=== PATIENT | female | born 1990 | race Two or more races ===

== ENCOUNTER 2022-06-23 13:49 | Outpatient (REF) | payer OTHER, SELFPAY ==
[2022-06-23 15:33] LABS: MANUAL DIFF FLAG NO
[2022-06-23 17:50] LABS: Appearance Urine Clear; Color Urine Yellow; Glucose Urine UA Negative (Negative); Leukocyte Esterase Urine Negative (Negative); Nitrite Urine Negative (Negative); Urine Blood Negative (Negative); Urine Ketones Negative (Negative); Urine Protein Negative (Neg-Trace)
[2022-06-23 17:54] LABS: Basophils Percent Auto 0.5 % (0-2); Eosinophils Absolute Auto 0.3 X10*3/uL (0.0-0.4); Eosinophils Percent Auto 4.2 % (0-4); Hematocrit 37.9 % (37.0-47.0); Hemoglobin 12.5 g/dl (12.0-16.0); Imm Gran Abs Auto 0.01 X10*3/uL (0.00-0.03); Imm Gran Pct Auto 0.2 % (0.0-0.4); Lymphocytes Absolute Auto 1.9 X10*3/uL (1.2-4.9); Lymphocytes Percent Auto 29.1 % (20-40); Mean Corpuscular Hemoglobin 27.7 pg (27.0-33.0); Mean Platelet Volume 11.9 fL (9.4-12.3); Monocytes Absolute Auto 0.5 X10*3/uL (0.1-1.2); Monocytes Percent Auto 7.2 % (2-11); Neutrophils Absolute Auto 3.9 x10*3/uL (2.0-8.3); Neutrophils Percent Auto 58.8 % (45-73); Platelet Count 198 X10*3/uL (160-400); Red Blood Count 4.51 X10*6/uL (4.20-5.50); Red Cell Distribution Width 11.9 % (11.0-16.0); White Blood Count 6.6 X10*3/uL (4.8-10.8)
[2022-06-23 17:56] LABS: Bacteria Urine None Seen (None Seen); Hyaline Casts Urine 0-2 /LPF (0-2); RBC Urine 0-2 /HPF (0-2); Squamous Epithelial Cell Urine 0-2 /HPF (0-2); WBC Urine 0-5 /HPF (0-5)
[2022-06-23 18:26] LABS: Creatinine Urine 72.16 mg/dL; Total Protein Urine Random < 7 mg/dL (<12)
[2022-06-23 18:43] LABS: Alanine Aminotransferase 18 U/L (0-31); Albumin Level 4.4 g/dL (3.5-5.0); Alkaline Phosphatase 79 U/L (39-117); Anion Gap 13 (12-20); Aspartate Amino Transferase 23 U/L (5-31); Bilirubin Total 0.5 mg/dL (0.0-1.0); Blood Urea Nitrogen 11 mg/dL (9-16); Calcium 9.1 mg/dL (8.4-10.2); Carbon Dioxide 24 mmol/L (22-29); Chloride 108 mmol/L (96-108); Estimated Glomerular Filt Rate > 60; Glucose Random 78 mg/dL (60-115); Potassium 3.9 mmol/L (3.3-5.1); Rheumatoid Factor < 13.0 IU/mL (<15.0); Sodium 141 mmol/L (135-145); TSH reflex Free T4 0.61 uIU/mL (0.32-4.0); Total Protein 7.1 g/dL (6.5-8.0)
[2022-06-23 18:56] LABS: Erythrocyte Sedimentation Rate 9 MM/HR (0-20)
[2022-06-24 07:23] LABS: HBS Num1 46.58 mIU/mL (0-7.99); HBsAGNum1 0.39 S/CO (0.00-0.99); Hepatitis A Antibody IgM 0.12 Index (0-0.79); Hepatitis B Core Antibody Nonreactive (Nonreactive); Hepatitis B Surface Antigen Negative (Negative); ~HepC Num1 0.11 S/CO (0.00-0.79); ~Hepatitis A Antibody IgM Nonreactive (Nonreactive); ~Hepatitis B Surface Antibody REACTIVE (Nonreactive); ~Hepatitis C Antibody Nonreactive (Nonreactive)
[2022-06-28 00:48] LABS: Complement C3 130 mg/dL (83-193)
[2022-06-28 11:54] LABS: Thyroglobulin Antibodies <1 IU/mL (< or = 1); Thyroid Peroxidase Antibodies <1 IU/mL (<9)
[2022-06-28 16:23] LABS: Cyclic Citrullinated Peptide <16 UNITS
[2022-06-28 21:44] LABS: PTT (LAC) Screen 32 sec (<=40)
[2022-06-29 09:19] LABS: Anti DNA DS Antibody 1 IU/mL; Antibody to SS-A Antigen <1.0 NEG AI (<1.0 NEG); Antibody to SS-B Antigen <1.0 NEG AI (<1.0 NEG); SM/Ribonucleoprotein Ab <1.0 NEG AI (<1.0 NEG); Smith Protein <1.0 NEG AI (<1.0 NEG)
[2022-06-29 15:38] LABS: DNAds, Crithidia Antibody Negative (Negative)
[2022-06-30 12:47] LABS: Beta-2 Glycoprotein IgA <2.0 U/mL (<20.0); Beta-2 Glycoprotein IgG <2.0 U/mL (<20.0); Beta-2 Glycoprotein IgM <2.0 U/mL (<20.0)
[2022-07-01 09:54] LABS: Cardiolipin IgG Ab <2.0 GPL-U/mL; Cardiolipin IgM Ab <2.0 MPL-U/mL
== END 2022-06-23 13:50 | disposition home or self-care (01) ==
LOC: HO.LAB 13:49
PROVIDERS: PCP Physician Assistant Medical; Visit Provider Student in an Organized Health Care Education/Training Program
DX: M70.62 Trochanteric bursitis, left hip (principal); M25.551 Pain in right hip; M25.532 Pain in left wrist; M25.531 Pain in right wrist; R76.8 Other specified abnormal immunological findings in serum; R53.83 Other fatigue; G43.909 Migraine, unspecified, not intractable, without status migrainosus; H66.90 Otitis media, unspecified, unspecified ear; Z79.899 Other long term (current) drug therapy; Z11.59 Encounter for screening for other viral diseases
CPT/HCPCS: 36415; 80053; 81001; 84156; 84443; 85025; 85597; 85613; 85652; 85730; 86140; 86146; 86147; 86160; 86200; 86225; 86235; 86255; 86376; 86431; 86704; 86706; 86709; 86800; 86803; 87340

== ENCOUNTER → 2022-07-28 15:15 | Outpatient (BNVA) | payer OTHER, SELFPAY | PROVIDERS: PCP Physician Assistant Medical; Visit Provider Student in an Organized Health Care Education/Training Program | DX: Z13.89 Encounter for screening for other disorder (principal) ==

== ENCOUNTER → 2022-09-05 14:50 | Outpatient (BNVA) | payer OTHER, SELFPAY | PROVIDERS: PCP Physician Assistant Medical; Visit Provider Nurse Practitioner Family | DX: Z13.89 Encounter for screening for other disorder (principal) ==

== ENCOUNTER 2022-11-07 17:14 | Outpatient (REF) | payer OTHER, SELFPAY ==
--- NOTE | ~2022-11-07 | MR_ITS ---
EXAMINATION: MR BRAIN WITHOUT AND WITH CONTRAST CLINICAL INFORMATION: Migraine. Left ear pain. COMPARISON: None available. TECHNIQUE: Multiplanar, multisequence MRI of the brain was obtained using a skull base protocol without and following the administration of 6.5 mL of Gadavist intravenous contrast. FINDINGS: No focal restricted diffusion is demonstrated to suggest acute or subacute cerebral ischemia. No evidence of acute or chronic hemorrhagic products on heme-sensitive imaging. Normal parenchymal signal characteristics. The ventricles are normal in morphology and size. No abnormal mass effect. No midline shift. Normal appearance of the pituitary gland. Normal positioning of the cerebellar tonsils. No mass of the cerebellopontine angles. Normal appearance of the cranial nerve V, VII, and VIII nerve roots. No edema or vascular loops near the nerve root entry sites. Normal appearance of the internal auditory canals without enhancing mass lesions. No abnormal enhancement along the course of the facial nerves bilaterally. Normal appearance of the labyrinthine structures without loss of T2 signal or abnormal enhancement. Normal arterial and venous vascular flow voids are present. No abnormal intracranial contrast enhancement. Normal, homogeneous marrow signal. No signal abnormalities within the paranasal sinuses or mastoids. MR/MR head/brain wo/w con IMPRESSION: 1. No acute intracranial abnormalities. No abnormal intracranial enhancement. 2. No MRI abnormalities to explain the patient's symptoms.
== END 2022-11-07 17:15 | disposition home or self-care (01) ==
LOC: HO.MRI 17:14
PROVIDERS: PCP Internal Medicine; Visit Provider Nurse Practitioner Family
DX: G43.009 Migraine without aura, not intractable, without status migrainosus (principal); H92.02 Otalgia, left ear; H93.12 Tinnitus, left ear; R76.8 Other specified abnormal immunological findings in serum
CPT/HCPCS: 70553; A9585

== ENCOUNTER 2025-02-26 10:09 | Outpatient (AMB) | payer OTHER, SELFPAY | END 2025-02-26 10:21 | disposition home or self-care (01) | LOC: HO.HMGAL 10:09 | PROVIDERS: PCP Internal Medicine; Visit Provider Registered Nurse Emergency | DX: J30.89 Other allergic rhinitis (principal) | CPT/HCPCS: 95117; 95165 ==

== ENCOUNTER 2025-03-05 10:29 | Outpatient (AMB) | payer OTHER, SELFPAY | END 2025-03-05 10:45 | disposition home or self-care (01) | LOC: HO.HMGAL 10:29 | PROVIDERS: PCP Internal Medicine; Visit Provider Registered Nurse Emergency | DX: J30.89 Other allergic rhinitis (principal) | CPT/HCPCS: 95117; 95165 ==

== ENCOUNTER 2025-03-10 09:25 | Outpatient (AMB) | payer OTHER, SELFPAY | END 2025-03-10 09:29 | disposition home or self-care (01) | LOC: HO.HMGAL 09:25 | PROVIDERS: PCP Internal Medicine; Visit Provider Registered Nurse Emergency | DX: J30.89 Other allergic rhinitis (principal) | CPT/HCPCS: 95117; 95165 ==

== ENCOUNTER 2025-05-12 10:52 | Outpatient (AMB) | payer OTHER, SELFPAY ==
--- OUTSIDE RECORDS SUMMARY | 2025-05-12 22:29 | XMS_ITS | Data Portability ---
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 Patient consented to telephone visit Patient was located in the [facility]. Provider was located in the office. No other persons participated in the telemedicine visit except for the patient unless otherwise indicated here. Total time of visit was 20 minutes. Not available 03/13/2023 16:40:55 Plan of Treatment Reminders Order Date Submit Date Provider Last Modified By Organization Details Last Modified Time Details Appointments None record ed. Lab amino acid profil e, serum 2024 025 ALFRED [facility] (Centralized Electronic Ordering - All Locations), Patient Can Go To The Location Of Their Choice, [address] 5 16:06:15 vitami n C, serum 2024 025 ALFRED [facility] (Centralized Electronic Ordering - All Locations), Patient Can Go To The Location Of Their Choice, [address] 5 16:06:18 fatty acids, free, QN, serum or plasma 2024 025 ALFRED [facility] (Centralized Electronic Ordering - All Locations), Patient Can Go To The Location Of Their Choice, 16:06:20 magnes ium, serum or plasma 2024 ALFRED [facility] (Centralized Electronic Ordering - All Locations), Patient Can Go To The Location Of Their Choice, 16:06:18 Hepati tis C IgG Ab, qual, serum 2024 ALFRED [facility] (Centralized Electronic Ordering - All Locations), Patient Can Go To The Location Of Their Choice, 16:06:17 vitami n B3 (niaci n+meta bolite s), serum 2024 ALFRED [facility] (Centralized Electronic Ordering - All Locations), Patient Can Go To The Location Of Their Choice, 16:06:16 amylas e + lipase , serum 2024 ALFRED [facility] (Centralized Electronic Ordering - All Locations), Patient Can Go To The Location Of Their Choice, 08:08:54 CMP, serum or plasma 2024 ALFRED [facility] (Centralized Electronic Ordering - All Locations), Patient Can Go To The Location Of Their Choice, 08:08:54 C reacti ve protei n, QN, serum or plasma 2024 025 ALFRED [facility] (Centralized Electronic Ordering - All Locations), Patient Can Go To The Location Of Their Choice, 08:08:55 CBC w/ auto diff 2024 025 ALFRED [facility] (Centralized Electronic Ordering - All Locations), Patient Can Go To The Location Of Their Choice, 08:08:53 ESR (eryth rocyte sedime ntatio n rate), blood 2023 024 [facility], [address], [place], [address], 4 22:06:07 rf (rheum atoid factor ), serum 2023 024 AL[facility], [address], [place], [address], 4 22:06:06 RAMSEY (antin uclear antibo dies) screen , ifa, serum 2023 024 ALFRED [facility], [address], [place], [address], 4 22:06:05 parvov irus B19 igg+ig m Ab, serum 2023 024 ALFR[facility], [address], [place], [address], 4 22:06:05 borrel ia burgdo rferi IgG + IgM + total panel, IA, serum 2023 024 AL[facility], [address], [place], [address], 4 22:06:07 unlist ed lab - CRP+hl a-B27 2023 024 AL[facility], [address], [place], [address], 4 22:06:04 Referral allerg ist referr al - pt allerg ist recent ly retire d 2024 025 [facility] Foster Lomas MD, [address] [place] [address], [facility], [place], [address], 5 11:16:[address] referr al 2024 025 [facility], [address] [place] [address], [place], [address], 5 11:43:45 psychi atrist referr al 2022 023 [email or web address] Not available 4 15:46:11 Procedures None record ed. Surgeries None record ed. Imaging electr omyogr am + nerve conduc tion study 2023 024 [facility] ([facility] [address], [address], 5 11:42:48 Medication Orders buprop ion HCl XL 300 mg 24 hr tablet , extend ed releas e 2022 023 [id number], [address] [facility], [place], [address], 4 13:39:00 Patient TargetsNo targets recorded. 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 Referring Physician: Shweta Anderson [facility], Encounter Date: 01/30/2025 Web Developer Referral for Mucous membrane dryness Referring Physician: Shweta Anderson [facility], Encounter Date: 01/30/2025 Results Created Date Observation Date Name Description Value Unit Range Abnormal Flag Note LastModifiedBy Organization Detail LastModifiedTime 05/02/2005/03/2024 CRP+H LA-B2 7 C-reactive protein, quant 2 mg/L 0-10 normal Not Available [facility] ([facility]) [address] [facility], [place], [address], 05/08/2024 22:06:04 05/02/20 24 05/08/2024 CRP+H LA-B2 7 hla-B27 Negati ve HLA-B *27 Negat dale B27 allel e inter preta tion for all loci based on IMGT/ HLA datab ase versi on 3.51. 0 This test was devel oped and its perfo rmanc e rai cteri stics deter mined by [employer] . It has not been clear ed or appro darius by the Food and Drug Admin istra tion. [facility] CLIA ID Matthew ashraf [id number] This test was perfo rmed using Polym erase Chain React ion (PCR) and Seque nce Speci fic Oligo nucle otide Probe s (SSOP ) techn ique. Seque nce Based Typin g (SBT) may be used as a suppl ement al metho d when neces tiffanie. If you have quest ions, pleas e call HLA custo frank servi ce at [phone] or email at [facility] [email or web address]. Not Available [facility] ([facility]) [address] [facility], [place], [address], 05/08/2024 22:06:04 05/02/20 24 05/03/2024 PARVO VIRUS B19, HUMAN , IGG/I GM parvovirus B19, IgG 6.0 index 0.0-0. 8 above high normal Negat dale <0.9 Equiv ocal 0.9 - 1.1 Posit dale >1.1 Not Available [facility] ([facility]) [address] [place], [address], 05/08/2024 22:06:05 05/02/20 24 05/03/2024 PARVO VIRUS B19, HUMAN , IGG/I GM parvovirus B19, IgM 0.2 index 0.0-0. 8 Negat dale <0.9 Equiv ocal 0.9 - 1.1 Posit dale >1.1 Not Available [facility] ([facility]) [address] [facility], [place], [address], 05/08/2024 22:06:05 05/02/20 24 05/08/2024 ANTI- NUCLE AR AB BY IFA (RDL) anti-nuclear Ab by ifa (rdl) Positi ve negati ve abnormal Not Available [facility] [address] [place], [address], 05/08/2024 22:06:05 05/02/20 24 05/08/2024 ANTI- NUCLE AR AB BY IFA (RDL) homogeneous pattern 1:80 <1:40 above high normal Not Available [facility] [address] [place], [address], 05/08/2024 22:06:05 05/02/20 24 05/08/2024 ANTI- NUCLE AR AB BY IFA (RDL) nucleolar pattern WHEEL BORER Not Available [facility] [address] [place] [address], [address], 05/08/2024 22:06:05 05/02/20 24 05/08/2024 ANTI- NUCLE AR AB BY IFA (RDL) speckled pattern 1:80 <1:40 above high normal Not Available [facility] [address] [place], [address], 05/08/2024 22:06:05 05/02/20 24 05/08/2024 ANTI- NUCLE AR AB BY IFA (RDL) centromere pattern WHEEL BORER Not Available [facility] [address] [place], [address], 05/08/2024 22:06:05 05/02/20 24 05/08/2024 ANTI- NUCLE AR AB BY IFA (RDL) spindle apparatus pattern WHEEL BORER Not Available [facility] [address] [place] [address], [address], 05/08/2024 22:06:05 05/02/20 24 05/08/2024 ANTI- NUCLE AR AB BY IFA (RDL) nuclear membrane pattern WHEEL BORER Not Available [facility] [address] [place], [address], 05/08/2024 22:06:05 05/02/20 24 05/08/2024 ANTI- NUCLE AR AB BY IFA (RDL) midbody pattern WHEEL BORER Not Available [facility] [address] [place], [address], 05/08/2024 22:06:05 05/02/20 24 05/08/2024 ANTI- NUCLE AR AB BY IFA (RDL) nuclear dot pattern WHEEL BORER Not Available [facility] [address] [place], [address], 05/08/2024 22:06:05 05/02/20 24 05/08/2024 ANTI- NUCLE AR AB BY IFA (RDL) pcna pattern WHEEL BORER Not Available [facility] [address] [place], [address], 05/08/2024 22:06:05 05/02/20 24 05/08/2024 ANTI- NUCLE AR AB BY IFA (RDL) centriole pattern WHEEL BORER Not Available [facility] [address] [place] [address], [address], 05/08/2024 22:06:05 05/02/20 24 05/08/2024 ANTI- NUCLE AR AB BY IFA (RDL) note: Commen t RAMSEY perfo rmed by Indir ect Fluor escen t Antib colleen (IFA) Not Available [facility] [address] [place] [address], [address], 05/08/2024 22:06:05 05/02/20 24 05/03/2024 RHEUM ATOID FACTO R (RF) rheumatoid factor (rf) <10.0 IU/mL <14.0 Not Available [facility]) [address] [facility], [place], [address], 05/08/2024 22:06:06 05/02/20 24 05/04/2024 LYME DISEA SE SEROL OGY W/REF DEONNA lyme total antibody alejandra Negati ve negati ve Lyme antib odies not detec vipul. Refle x testi ng is not indic ated. No labor atory evide nce of infec tion with B. burgd orfer i (Lyme disea se). Negat dale resul ts may occur in patie nts recen tly infec vipul (less than or equal to 14 days) with B. burgd orfer i. If recen t infec tion is suspe cted, repea t testi ng on a new sampl e colle cted in 7 to 14 days is recom rachna d. Not Available [facility] ([facility]) [address] [facility], [place], [address], 05/08/2024 22:06:07 05/02/20 24 05/03/2024 SEDIM ENTAT ION RATE- WESTE RGREN sedimentatio n rate-westerg may 10 mm/HR 0-32 normal Not Available [facility] ([facility]) [address] [place], [address], 05/08/2024 22:06:07 01/16/20 25 01/16/2025 CBC WITH DIFFE RENTI AL/PL ATELE T WBC 5.4 x10e3 /uL 3.4-10 .8 normal Not Available [facility] ([facility]) [address] [facility], [place], [address], 01/16/2025 08:08:53 01/16/20 25 01/16/2025 CBC WITH DIFFE RENTI AL/PL ATELE T RBC 4.52 x10e6 /uL 3.77-5 .28 normal Not Available [facility] ([facility]) [address] [place], [address], 01/16/2025 08:08:53 01/16/20 25 01/16/2025 CBC WITH DIFFE RENTI AL/PL ATELE T hemoglobin 13.0 g/dL 11.1-1 5.9 normal Not Available [facility] ([facility]) [address] [place], [address], 01/16/2025 08:08:53 01/16/20 25 01/16/2025 CBC WITH DIFFE RENTI AL/PL ATELE T hematocrit 40.2 % 34.0-4 6.6 normal Not Available [facility] ([facility]) [address] [facility], [place], [address], 01/16/2025 08:08:53 01/16/20 25 01/16/2025 CBC WITH DIFFE RENTI AL/PL ATELE T MCV 89 fL 79-97 normal Not Available [facility] ([facility]) [address] [place], [address], 01/16/2025 08:08:53 01/16/20 25 01/16/2025 CBC WITH DIFFE RENTI AL/PL ATELE T MCH 28.8 pg 26.6-3 3.0 normal Not Available [facility] ([facility]) [address] [facility], [place], [address], 01/16/2025 08:08:53 01/16/20 25 01/16/2025 CBC WITH DIFFE RENTI AL/PL ATELE T MCHC 32.3 g/dL 31.5-3 5.7 normal Not Available [facility] ([facility]) [address] [place], [address], 01/16/2025 08:08:53 01/16/20 25 01/16/2025 CBC WITH DIFFE RENTI AL/PL ATELE T RDW 12.3 % 11.7-1 5.4 Not Available [facility] ([facility]) [address] [place], [address], 01/16/2025 08:08:53 01/16/20 25 01/16/2025 CBC WITH DIFFE RENTI AL/PL ATELE T platelets 210 x10e3 /uL 150-45 0 normal Not Available [facility] ([facility]) [address] [place], [address], 01/16/2025 08:08:53 01/16/20 25 01/16/2025 CBC WITH DIFFE RENTI AL/PL ATELE T neutrophils 49 % not estab. normal Not Available [facility] ([facility]) [address] [facility], [place], [address], 01/16/2025 08:08:53 01/16/20 25 01/16/2025 CBC WITH DIFFE RENTI AL/PL ATELE T lymphs 37 % not estab. normal Not Available [facility] ([facility]) [address] [facility], [place], [address], 01/16/2025 08:08:53 01/16/20 25 01/16/2025 CBC WITH DIFFE RENTI AL/PL ATELE T monocytes 7 % not estab. normal Not Available [facility] ([facility]) [address] [facility], [place], [address], 01/16/2025 08:08:53 01/16/20 25 01/16/2025 CBC WITH DIFFE RENTI AL/PL ATELE T eos 6 % not estab. normal Not Available [facility] ([facility]) [address] [facility], [place], [address], 01/16/2025 08:08:53 01/16/20 25 01/16/2025 CBC WITH DIFFE RENTI AL/PL ATELE T basos 1 % not estab. normal Not Available [facility] ([facility]) [address] [facility], [place], [address], 01/16/2025 08:08:53 01/16/20 25 01/16/2025 CBC WITH DIFFE RENTI AL/PL ATELE T immature cells WHEEL BORER Not Available [facility] ([facility]) [address] [place], [address], 01/16/2025 08:08:53 01/16/20 25 01/16/2025 CBC WITH DIFFE RENTI AL/PL ATELE T neutrophils (absolute) 2.6 x10e3 /uL 1.4-7. 0 normal Not Available [facility] ([facility]) [address] [facility], [place], [address], 01/16/2025 08:08:53 01/16/20 25 01/16/2025 CBC WITH DIFFE RENTI AL/PL ATELE T lymphs (absolute) 2.0 x10e3 /uL 0.7-3. 1 normal Not Available [facility] ([facility]) [address] [facility], [place], [address], 01/16/2025 08:08:53 01/16/20 25 01/16/2025 CBC WITH DIFFE RENTI AL/PL ATELE T monocytes(ab solute) 0.4 x10e3 /uL 0.1-0. 9 normal Not Available [facility] ([facility]) [address] [facility], [place], [address], 01/16/2025 08:08:53 01/16/20 25 01/16/2025 CBC WITH DIFFE RENTI AL/PL ATELE T eos (absolute) 0.3 x10e3 /uL 0.0-0. 4 normal Not Available [facility] ([facility]) [address] [facility], [place], [address], 01/16/2025 08:08:53 01/16/20 25 01/16/2025 CBC WITH DIFFE RENTI AL/PL ATELE T baso (absolute) 0.0 x10e3 /uL 0.0-0. 2 normal Not Available [facility] ([facility]) [address] [place], [address], 01/16/2025 08:08:53 01/16/20 25 01/16/2025 CBC WITH DIFFE RENTI AL/PL ATELE T immature granulocytes 0 % not estab. Not Available [facility] ([facility]) [address] [facility], [place], [address], 01/16/2025 08:08:53 01/16/20 25 01/16/2025 CBC WITH DIFFE RENTI AL/PL ATELE T immature grans (abs) 0.0 x10e3 /uL 0.0-0. 1 Not Available [facility] ([facility]) [address] [facility], [place], [address], 01/16/2025 08:08:53 01/16/20 25 01/16/2025 CBC WITH DIFFE RENTI AL/PL ATELE T NRBC WHEEL BORER Not Available [facility] ([facility]) [address] [facility], [place], [address], 01/16/2025 08:08:53 01/16/20 25 01/16/2025 CBC WITH DIFFE RENTI AL/PL ATELE T hematology comments: WHEEL BORER Not Available [facility] ([facility]) [address] [facility], [place], [address], 01/16/2025 08:08:53 01/16/20 25 01/16/2025 COMP. METAB OLIC PANEL (14) glucose 89 mg/dL 70-99 normal Not Available [facility] ([facility]) [address] [facility], [place], [address], 01/16/2025 08:08:54 01/16/20 25 01/16/2025 COMP. METAB OLIC PANEL (14) BUN 17 mg/dL 6-20 normal Not Available [facility] ([facility]) [address] [facility], [place], [address], 01/16/2025 08:08:54 01/16/20 25 01/16/2025 COMP. METAB OLIC PANEL (14) creatinine 0.71 mg/dL 0.57-1 .00 normal Not Available [facility] ([facility]) [address] [place], [address], 01/16/2025 08:08:54 01/16/20 25 01/16/2025 COMP. METAB OLIC PANEL (14) eGFR 115 mL/mi n/1.7 3 >59 normal Not Available [facility] ([facility]) [address] [place], [address], 01/16/2025 08:08:54 01/16/20 25 01/16/2025 COMP. METAB OLIC PANEL (14) BUN/creatini ne ratio 24 9-23 above high normal Not Available [facility] ([facility]) [address] [place], [address], 01/16/2025 08:08:54 01/16/20 25 01/16/2025 COMP. METAB OLIC PANEL (14) sodium 143 mmol/ L 134-14 4 normal Not Available [facility] ([facility]) [address] [place], [address], 01/16/2025 08:08:54 01/16/20 25 01/16/2025 COMP. METAB OLIC PANEL (14) potassium 4.0 mmol/ L 3.5-5. 2 normal Not Available [facility] ([facility]) [address] [place], [address], 01/16/2025 08:08:54 01/16/20 25 01/16/2025 COMP. METAB OLIC PANEL (14) chloride 107 mmol/ L 96-106 above high normal Not Available [facility] ([facility]) [address] [facility] [place], [address], 01/16/2025 08:08:54 01/16/20 25 01/16/2025 COMP. METAB OLIC PANEL (14) carbon dioxide, total 22 mmol/ L 20-29 normal Not Available [facility] ([facility]) [address] [facility] [place], [address], 01/16/2025 08:08:54 01/16/20 25 01/16/2025 COMP. METAB OLIC PANEL (14) calcium 9.0 mg/dL 8.7-10 .2 normal Not Available [facility] ([facility]) [address] [place], [address], 01/16/2025 08:08:54 01/16/20 25 01/16/2025 COMP. METAB OLIC PANEL (14) protein, total 6.8 g/dL 6.0-8. 5 normal Not Available [facility] ([facility]) [address] [place], [address], 01/16/2025 08:08:54 01/16/20 25 01/16/2025 COMP. METAB OLIC PANEL (14) albumin 4.1 g/dL 3.9-4. 9 normal Not Available [facility] ([facility]) [address] [facility] [place], [address], 01/16/2025 08:08:54 01/16/20 25 01/16/2025 COMP. METAB OLIC PANEL (14) globulin, total 2.7 g/dL 1.5-4. 5 Not Available [facility] ([facility]) [address] [facility] [place], [address], 01/16/2025 08:08:54 01/16/20 25 01/16/2025 COMP. METAB OLIC PANEL (14) bilirubin, total 0.3 mg/dL 0.0-1. 2 normal Not Available [facility] ([facility]) [address] [facility] [place], [address], 01/16/2025 08:08:54 01/16/20 25 01/16/2025 COMP. METAB OLIC PANEL (14) alkaline phosphatase 61 IU/L 44-121 normal Not Available [facility]) [address] [facility] [place], [address], 01/16/2025 08:08:54 01/16/20 25 01/16/2025 COMP. METAB OLIC PANEL (14) AST (SGOT) 18 IU/L 0-40 normal Not Available [facility] ([facility]) [address] [facility] [place], [address], 01/16/2025 08:08:54 01/16/20 25 01/16/2025 COMP. METAB OLIC PANEL (14) ALT (SGPT) 12 IU/L 0-32 normal Not Available [facility] ([facility]) [address] [place], [address], 01/16/2025 08:08:54 01/16/20 25 01/16/2025 BRIA+L IPASE amylase 48 U/L 31-110 normal Not Available [facility] ([facility]) [address] [place], [address], 01/16/2025 08:08:54 01/16/20 25 01/16/2025 BRIA+L IPASE lipase 31 U/L 14-72 normal Not Available [facility] ([facility]) [address] [place], [address], 01/16/2025 08:08:54 01/16/20 25 01/16/2025 C-RAFAEL CTIVE PROTE IN, QUANT C-reactive protein, quant <1 mg/L 0-10 Not Available [facility] ([facility]) [address] [place], [address], 01/16/2025 08:08:55 01/23/20 25 01/23/2025 H. PYLOR I STOOL AG, EIA H. pylori stool Ag, EIA Negati ve negati ve Not Available [facility] ([facility]) [address] [place], [address], 01/23/2025 18:06:01 02/08/20 25 02/07/2025 AMINO ACID PROFI LE, QN, PLASM A methodology Commen t Amino acid jadiel ntrat ions were obtai charles by LC-MS /MS corinne sis. Not Available [facility] ([facility]) [address] [place], [address], 02/19/2025 16:06:15 08/02/19/2025 AMINO ACID PROFI LE, QN, PLASM A taurine 76.2 umol/ L 29.2-1 32.3 Not Available [facility] ([facility]) [address] [facility], [place], [address], 02/19/2025 16:06:15 02/08/2002/19/2025 AMINO ACID PROFI LE, QN, PLASM A aspartate 3.0 umol/ L 0.0-7. 4 Not Available [facility] ([facility]) [address] [facility], [place], [address], 02/19/2025 16:06:15 02/08/2002/19/2025 AMINO ACID PROFI LE, QN, PLASM A hydroxyproli ne 15.1 umol/ L 4.7-35 .2 Not Available [facility] ([facility]) [address] [facility], [place], [address], 02/19/2025 16:06:15 02/08/2002/19/2025 AMINO ACID PROFI LE, QN, PLASM A threonine 174.2 umol/ L 67.8-2 11.6 Not Available [facility] ([facility]) [address] [place], [address], 02/19/2025 16:06:15 02/08/2002/19/2025 AMINO ACID PROFI LE, QN, PLASM A serine 79.9 umol/ L 48.7-1 45.2 Not Available [facility] ([facility]) [address] [place], [address], 02/19/2025 16:06:15 02/08/2002/19/2025 AMINO ACID PROFI LE, QN, PLASM A asparagine 55.8 umol/ L 29.5-8 4.5 Not Available [facility] ([facility]) [address] [place], [address], 02/19/2025 16:06:15 02/08/2002/19/2025 AMINO ACID PROFI LE, QN, PLASM A glutamate 51.1 umol/ L 18.1-1 55.9 Not Available [facility] ([facility]) [address] [facility], [place], [address], 02/19/2025 16:06:15 02/08/2002/19/2025 AMINO ACID PROFI LE, QN, PLASM A glutamine 583.3 umol/ L 372.8- 701.4 Not Available [facility] ([facility]) [address] [facility], [place], [address], 02/19/2025 16:06:15 02/08/2002/19/2025 AMINO ACID PROFI LE, QN, PLASM A sarcosine 0.8 umol/ L 0.0-4. 0 Not Available [facility] ([facility]) [address] [facility], [place], [address], 02/19/2025 16:06:15 02/08/2002/19/2025 AMINO ACID PROFI LE, QN, PLASM A alpha-aminoa dipate 0.9 umol/ L 0.0-1. 9 Not Available [facility] ([facility]) [address] [facility], [place], [address], 02/19/2025 16:06:15 02/08/2002/19/2025 AMINO ACID PROFI LE, QN, PLASM A proline 215.0 umol/ L 84.8-3 52.5 Not Available [facility] ([facility]) [address] [place], [address], 02/19/2025 16:06:15 02/08/2002/19/2025 AMINO ACID PROFI LE, QN, PLASM A glycine 226.5 umol/ L 144.0- 411.0 Not Available [facility] ([facility]) [address] [place], [address], 02/19/2025 16:06:15 02/08/20 25 02/19/2025 AMINO ACID PROFI LE, QN, PLASM A alanine 338.4 umol/ L 209.2- 515.5 Not Available [facility] ([facility]) [address] [facility], [place], [address], 02/19/2025 16:06:15 02/08/20 25 02/19/2025 AMINO ACID PROFI LE, QN, PLASM A citrulline 159.6 umol/ L 15.6-4 6.9 above high normal Not Available [facility] ([facility]) [address] [facility], [place], [address], 02/19/2025 16:06:15 02/08/20 25 02/19/2025 AMINO ACID PROFI LE, QN, PLASM A alpha-aminob utyrate 24.4 umol/ L 5.4-34 .5 Not Available [facility] ([facility]) [address] [facility], [place], [address], 02/19/2025 16:06:15 02/08/2002/19/2025 AMINO ACID PROFI LE, QN, PLASM A valine 238.7 umol/ L 133.0- 317.1 Not Available [facility] ([facility]) [address] [facility], [place], [address], 02/19/2025 16:06:15 02/08/2002/19/2025 AMINO ACID PROFI LE, QN, PLASM A cystine 33.6 umol/ L 15.8-4 7.3 Not Available [facility] ([facility]) [address] [place], [address], 02/19/2025 16:06:15 02/08/20 25 02/19/2025 AMINO ACID PROFI LE, QN, PLASM A methionine 24.5 umol/ L 14.7-3 5.2 Not Available [facility] ([facility]) [address] [facility], [place], [address], 02/19/2025 16:06:15 02/08/2002/19/2025 AMINO ACID PROFI LE, QN, PLASM A homocitrulli ne <0.5 umol/ L 0.0-1. 7 Not Available [facility] ([facility]) [address], [place], [address], 02/19/2025 16:06:15 02/08/2002/19/2025 AMINO ACID PROFI LE, QN, PLASM A cystathionin e <0.5 umol/ L 0.0-0. 7 Not Available [facility] ([facility]) [address], [place], [address], 02/19/2025 16:06:15 02/08/2002/19/2025 AMINO ACID PROFI LE, QN, PLASM A alloisoleuci ne 1.2 umol/ L 0.0-3. 2 Not Available [facility] ([facility]) [address], [place], [address], 02/19/2025 16:06:15 02/08/2002/19/2025 AMINO ACID PROFI LE, QN, PLASM A isoleucine 63.2 umol/ L 32.8-8 8.3 Not Available [facility] ([facility]) [address] [place], [address], 02/19/2025 16:06:15 02/08/2002/19/2025 AMINO ACID PROFI LE, QN, PLASM A leucine 119.6 umol/ L 66.7-1 65.7 Not Available [facility] ([facility]) [address], [place], [address], 02/19/2025 16:06:15 02/08/20 25 02/19/2025 AMINO ACID PROFI LE, QN, PLASM A tyrosine 77.0 umol/ L 27.8-8 3.3 Not Available [facility] ([facility]) [address], [place], [address], 02/19/2025 16:06:15 02/08/2002/19/2025 AMINO ACID PROFI LE, QN, PLASM A phenylalanin e 79.9 umol/ L 35.8-7 6.9 above high normal Not Available [facility] ([facility]) [address], [place], [address], 02/19/2025 16:06:15 02/08/2002/19/2025 AMINO ACID PROFI LE, QN, PLASM A argininosucc inate 0.1 umol/ L 0.0-3. 0 Not Available [facility] ([facility]) [address], [place], [address], 02/19/2025 16:06:15 02/08/2002/19/2025 AMINO ACID PROFI LE, QN, PLASM A beta-alanine 2.7 umol/ L 1.1-9. 0 Not Available [facility] ([facility]) [address], [place], [address], 02/19/2025 16:06:15 02/08/2002/19/2025 AMINO ACID PROFI LE, QN, PLASM A beta-aminois obutyrate 0.8 umol/ L 0.0-4. 3 Not Available [facility] ([facility]) [address] [place], [address], 02/19/2025 16:06:15 02/08/2002/19/2025 AMINO ACID PROFI LE, QN, PLASM A homocystine <0.3 umol/ L 0.0-0. 2 Not Available [facility] ([facility]) [address], [place], [address], 02/19/2025 16:06:15 02/08/2002/19/2025 AMINO ACID PROFI LE, QN, PLASM A gamma-aminob utyrate <0.5 umol/ L 0.0-0. 6 Not Available [facility] ([facility]) [address] [place], [address], 02/19/2025 16:06:15 02/08/2002/19/2025 AMINO ACID PROFI LE, QN, PLASM A tryptophan 54.5 umol/ L 23.5-9 3.0 Not Available [facility] ([facility]) [address], [place], [address], 02/19/2025 16:06:15 02/08/2002/19/2025 AMINO ACID PROFI LE, QN, PLASM A hydroxylysin e 0.2 umol/ L 0.1-0. 8 Not Available [facility] ([facility]) [address] [place], [address], 02/19/2025 16:06:15 02/08/2002/19/2025 AMINO ACID PROFI LE, QN, PLASM A ornithine 76.0 umol/ L 30.1-1 01.3 Not Available [facility] ([facility]) [address] [place], [address], 02/19/2025 16:06:15 02/08/2002/19/2025 AMINO ACID PROFI LE, QN, PLASM A lysine 156.3 umol/ L 94.0-2 78.0 Not Available [facility] ([facility]) [address] [place], [address], 02/19/2025 16:06:15 02/08/2002/19/2025 AMINO ACID PROFI LE, QN, PLASM A histidine 35.2 umol/ L 47.2-9 8.5 below low normal Not Available [facility] ([facility]) [address] [place], [address], 02/19/2025 16:06:15 02/08/20 25 02/19/2025 AMINO ACID PROFLENCHO GRECO, PLASM A arginine 114.3 umol/ L 36.3-1 19.2 Not Available [facility] ([facility]) [address], [place], [address], 02/19/2025 16:06:15 02/08/20 25 02/19/2025 AMINO ACID PROFI LENCHO BRANNON, PLASM A interpretati on Commen t: Plasm a amino acid corinne sis revea led a mildl y eleva vipul jadiel ntrat ion of citru lline . In the absen ce of clini anil infor matio n, the signi fican ce of this findi ng is uncer tain and may be a dieta ry artif act. Howev er, eleva vipul citru lline is assoc iated with brice al inbor n error s of metab olism (citr ullin emia type 1, pyruv ate carbo xylas e defic iency and citri n defic iency ) and it can also be secon estefany to reduc ed kidne y funct ion. These resul ts shoul d be corre lated with the clini anil and nutri michael l statu s of the patie nt at the time so sampl e colle ction . Not Available [facility] ([facility]) [address], [place], [address], 02/19/2025 16:06:15 02/08/20 25 02/19/2025 AMINO ACID PROFLENCHO GRECO, PLASM A director review Commen t Techn ical [place] nent corinne sis perfo rmed at [facility] Star lee al [place] nent inter preta tion perfo rmed by: Dionne De , PhD, [facility] Dire tor, [employer] [facility] ESTGD [address] [facility] [address] To discu ss these resul ts or other testi ng for inbor n error s of metab olism , pleas e conta ct our [employer] ic[facility] s at [phone] GENE( [phone]) , [facility] [facility] [employer], [facility], [place]. Not Available [facility] ([facility]) [address], [place], [address], 02/19/2025 16:06:15 02/08/20 25 02/16/2025 VITAM IN B3 (NIAC IN+ME TABOL ITE) nicotinamide 12.5 NG/mL 5.2-72 .1 Not Available [facility] ([facility]) [address], [place], [address], 02/19/2025 16:06:16 02/08/20 25 02/18/2025 VITAM IN B3 (NIAC IN+ME TABOL ITE) nicotinic acid <5.0 NG/mL 0.0-5. 0 Not Available [facility] ([facility]) [address], [place], [address], 02/19/2025 16:06:16 02/08/20 25 02/08/2025 HCV ANTIB COLLEEN RFX TO QUANT PCR HCV Ab Non Reacti ve non reacti ve Not Available [facility] ([facility]) [address], [place], [address], 02/19/2025 16:06:17 02/08/20 25 02/08/2025 HCV ANTIB COLLEEN RFX TO QUANT PCR interpretati on: Commen t Not infec vipul with HCV unles s early or acute infec tion is suspe cted (whic h may be delay ed in an immun ocomp romis ed indiv idual ), or other evide nce exist s to indic ate HCV infec tion. Not Available [facility] ([facility]) [address], [place], [address], 02/19/2025 16:06:17 02/08/20 25 02/12/2025 VITAM IN C vitamin C 1.3 mg/dL 0.4-2. 0 Vitam in C defic iency is gener ally defin ed as plasm a jadiel ntrat ions less than 0.2 mg/dL and level s betwe en 0.2 and 0.4 mg/dL are consi dered low. Not Available [facility] ([facility]) [address], [place], [address], 02/19/2025 16:06:17 02/08/2002/08/2025 MAGNE SIUM magnesium 2.0 mg/dL 1.6-2. 3 normal Not Available [facility] ([facility]) [address], [place], [address], 02/19/2025 16:06:18 02/08/2002/11/2025 FATTY ACIDS , FREE (NONE STER) fatty acids, free (nonester) 0.4 mEq/L 0.1-1. 1 Not Available [facility] ([facility]) [address], [place], [address], 02/19/2025 16:06:20 01/18/20 23 01/17/2023 US, head + neck, soft tissu e US Soft Tissue Head/N jimmie Reason : E04.9; concer n for nontox ic goiter . COMPAR MARY ALICE: None FINDIN GS: RIGHT THYROI D LOBE: 4.8 x 1.1 x 1.3 cm, volume 3.7 cc. Normal homoge neous echote xture. Normal parenc hymal vascul arity. No right nodule s. LEFT THYROI D LOBE: 4.6 x 1.0 x 1.6 cm, volume 3.8 cc. Normal homoge neous echote xture. Normal parenc hymal vascul arity. No left nodule s. ISTHMU S: Thickn ess: 0.2 cm. IMPRES RICO: Normal ultras ound of the thyroi d gland. I have person ally review ed the images and I agree with this report . WSN: [id number] Orderi ng Physic dio: Aria nova WHEEL BORER, Mireille Antoine Dictat ed By: Yordy Fernandes MD Dictat ed Date/T senthil: 8:11 am Review ed By: Kimberli ziegler MD, Brayan Signed By: Brayan Lewis MD Signed Date/T senthil: 8:16 am Transc ribed By: QUINTON Transc ribed Date/T senthil: 8:00 am Patien t Class: Outpat ient [facility] (Outpt Imaging) [address], [place], [address], 01/25/2023 11:19:30 03/06/20 25 02/15/2025 US, abdom en No observ ation record ed. [facility] [address] [place], [address], 03/06/2025 14:21:22 03/06/20 25 02/15/2025 US, abdom en No observ ation record ed. [facility] [address] [place], [address], 03/11/2025 15:36:02 Result Notes None recorded. Problems Name Problem SNOMED Code Status Onset Date Resolution Date Notes Provider Name and Address Organization Details Recorded Time Anxiety 19327592 Active Not Available [facility] 3 02:17:09 Fatigue 26900816 Completed 01/11/2018 Nelsy verma [facility] 8 11:25:18 Acute sinusiti s 74093991 Completed 01/06/2017 ANDREW Chew [facility] 7 09:50:38 Contact dermatit is 83941143 Completed 01/06/2017 ANDREW Chew [facility] 7 09:50:44 Varicell a 44857316 Completed 199301/07/2014 DATE: 1993; ; RECORDED 04/12/20 12 4:09PM BY MOMO CHEW ON/ADDEN DOMINICK Negrete, [facility] [address], [place], [address] , [facility] 6 14:34:17 Varicell a [id number] Completed 199301/30/2014 DATE: 1993; ; RECORDED 04/12/20 12 4:09PM BY MOMO CHEW ON/ADDEN DUM Alcides Negrete, [facility] [address], [place], [address] , [facility] 6 14:34:17 Varicell a [id number] Completed 199301/31/2014 DATE: 1993; ; RECORDED 04/12/20 12 4:09PM BY MOMO CHEW ON/ADDBENNETT DUM Alcides Negrete, [facility] [address], [place], [address] , [facility] 6 14:34:17 Administ ration of Haemdinahi osiris influenz ae type b vaccine Completed 201001/07/2014 RECORDED 09/29/19 11 11:26AM BY CELSO MONROE, HISTORIC AL SUMMARY Alcides Negrete [facility] [address], [place], [address] , [facility] 6 14:34:18 Active or passive immuniza tion Completed 201001/07/2014 RECORDED 09/29/19 11 11:30AM BY CELSO MONROE, HISTORIC AL SUMMARY Alcides Negrete, [facility] [address], [place], [address] , [facility] 6 14:34:18 Administ ration of poliomye litis vaccine Completed 201001/07/2014 RECORDED 09/29/19 11 11:24AM BY CELSO MONROE, SHERRONIC AL SUMMARY Alcides Negrete, [facility] [address], [place], [address] , [facility] 6 14:34:18 Infectiv e hepatiti s immuniza tion Completed 201001/07/2014 RECORDED 09/29/19 11 11:27AM BY CELSO MONROE, HISTORIC AL SUMMARY Alcides Negrete, [facility] [address], [place], [address] , [facility] 6 14:34:18 Administ ration of diphther ia, pertussi s, and tetanus vaccine Completed 201001/07/2014 RECORDED 09/29/19 11 11:23AM BY CELSO MONROE, SHERRONIC AL SUMMARY Alcides Negrete, [facility] [address], [place], [address] , [facility] 6 14:34:18 Administ ration of bacteria l and viral vaccine Completed 201001/07/2014 RECORDED 09/29/19 11 11:28AM BY CELSO MONROE, HISTORIC AL SUMMARY Alcides Negrete, [facility] [address], [place], [address] , [facility] 6 14:34:18 Administ ration of measles and mumps and rubella vaccine Completed 201001/07/2014 RECORDED 09/29/19 11 11:25AM BY CELSO MONROE, SHERRONIC AL SUMMARY Alcides Negrete, [facility] [address] [facility] [address], [place], [address] , [facility] 6 14:34:18 Varicell a vaccinat ion Completed 201001/07/2014 RECORDED 09/29/19 11 11:29AM BY CELSO MONROE, HISTORIC AL SUMMARY Alcides Negrete, [facility] [address], [place], [address] , [facility] 6 14:34:18 Administ ration of Haemophi osiris influenz ae type b vaccine Completed 201001/30/2014 RECORDED 09/29/19 11 11:26AM BY CELSO MONROE, HISTORIC AL SUMMARY Alfreditofreddie Negrete, [facility] [address] [facility] [address], [place], [address] , [facility] 6 14:34:18 Active or passive immuniza tion Completed 201001/30/2014 RECORDED 09/29/19 11 11:30AM BY CELSO MONROE, HISTORIC AL SUMMARY Alcides Negrete, [facility] [address] [facility] [address], [place], [address] , [facility] 6 14:34:18 Administ ration of poliomye litis vaccine Completed 201001/30/2014 RECORDED 09/29/19 11 11:24AM BY CELSO MONROE, HISTORIC AL SUMMARY Alcides Negrete, [facility] [address] [facility] [address], [place], [address] , [facility] 6 14:34:18 Infectiv e hepatiti s immuniza tion Completed 201001/30/2014 RECORDED 09/29/19 11 11:27AM BY CELSO MONROE, HISTORIC AL SUMMARY Alcides Negrete, [facility] [address] [facility] [address], [place], [address] , [facility] 6 14:34:18 Administ ration of diphther ia, pertussi s, and tetanus vaccine Completed 201001/30/2014 RECORDED 09/29/19 11 11:23AM BY CELSO MONROE, HISTORIC AL SUMMARY Alcides Negrete, [facility] [address] [facility] [address], [place], [address] , [facility] 6 14:34:18 Administ ration of bacteria l and viral vaccine Completed 201001/30/2014 RECORDED 09/29/19 11 11:28AM BY CELSO MONROE, HISTORIC AL SUMMARY Alcides Negrete, [facility] [address] [facility] [address], [place], [address] , [facility] 6 14:34:18 Administ ration of measles and mumps and rubella vaccine Completed 201001/30/2014 RECORDED 09/29/19 11 11:25AM BY CELSO MONROE, HISTORIC AL SUMMARY Alcides Negrete, [facility] [address] [facility] [address], [place], [address] , [facility] 6 14:34:18 Varicell a vaccinat ion Completed 201001/30/2014 RECORDED 09/29/19 11 11:29AM BY CELSO MONROE, HISTORIC AL SUMMARY Alcides Negrete, [facility] [address] [facility] [address], [place], [address] , [facility] 6 14:34:18 Administ ration of Haemophi osiris influenz ae type b vaccine Completed 201001/31/2014 RECORDED 09/29/19 11 11:26AM BY CELSO MONROE, HISTORIC AL SUMMARY Alcides Negrete [facility] [address] [facility] [address], [place], [address] , [facility] 6 14:34:18 Active or passive immuniza tion Completed 201001/31/2014 RECORDED 09/29/19 11 11:30AM BY CELSO MONROE, HISTORIC AL SUMMARY Alcides Negrete, [facility] [address] [facility] [address], [place], [address] , [facility] 6 14:34:18 Administ ration of poliomye litis vaccine Completed 201001/31/2014 RECORDED 09/29/19 11 11:24AM BY CELSO MONROE, HISTORIC AL SUMMARY Alcides Negrete, [facility] [address] [facility] [address], [place], [address] , [facility] 6 14:34:18 Infectiv e hepatiti s immuniza tion Completed 201001/31/2014 RECORDED 09/29/19 11 11:27AM BY CELSO MONROE, HISTORIC AL SUMMARY Alcides Negrete, [facility] [address] [facility] [address], [place], [address] , [facility] 6 14:34:18 Administ ration of diphther ia, pertussi s, and tetanus vaccine Completed 201001/31/2014 RECORDED 09/29/19 11 11:23AM BY CELSO MONROE, HISTORIC AL SUMMARY Alcides Negrete, [facility] [address] [facility] [address], [place], [address] , [facility] 6 14:34:18 Administ ration of bacteria l and viral vaccine Completed 201001/31/2014 RECORDED 09/29/19 11 11:28AM BY CELSO MONROE, HISTORIC AL SUMMARY Alcides Negrete, [facility] [address] [facility] [address], [place], [address] , [facility] 6 14:34:18 Administ ration of measles and mumps and rubella vaccine Completed 201001/31/2014 RECORDED 09/29/19 11 11:25AM BY CELSO MONROE, HISTORIC AL SUMMARY Alcides Negrete, [facility] [address] [facility] [address], [place], [address] , [facility] 6 14:34:18 Varicell a vaccinat ion Completed 201001/31/2014 RECORDED 09/29/19 11 11:29AM BY CELSO MONROE, HISTORIC AL SUMMARY Alcides Negrete, [facility] [address] [address], [place], [address] , [facility] 6 14:34:18 Acute sinusiti s [id number] Completed 201101/07/2014 IMPRESSI ON: 3 WEEKS OF COUGH, GREEN SPUTUM, NASAL PRESSURE AND HEADACHE S, TX FOR SINUSITI S; RECORDED 04/12/20 12 4:09PM BY MOMO CHEW ON/ADDEN DUM Mayra Childress MA null, [facility] 7 09:50:38 Influenz a vaccine needed [id number] 06 Completed 201101/07/2014 RECORDED 04/12/20 12 4:19PM BY MAYRA CHILDRESS, OFFICE VISIT Alcides Negrete, [facility] [address] [address], [place], [address] , [facility] 6 14:34:18 Well child [id number] Completed 201101/07/2014 IMPRESSI ON: FIRST PAP TODAY, TOLERATE D WELL; RECORDED 04/12/20 12 4:09PM BY MOMO CHEW ON/ADDEN DUM Alcides Negrete, [facility] [address] [address], [place], [address] , [facility] 6 14:34:18 Administ ration of tetanus vaccine Completed 201101/07/2014 RECORDED 04/12/20 12 4:09PM BY MOMO CHEW ON/HILDA Negrete, [facility] [address] [address], [place], [address] , [facility] 6 14:34:18 Acute sinusiti s [id number] Completed 201101/30/2014 IMPRESSI ON: 3 WEEKS OF COUGH, GREEN SPUTUM, NASAL PRESSURE AND HEADACHE S, TX FOR SINUSITI S; RECORDED 04/12/20 12 4:09PM BY MOMO CHEW ON/ADDEN DOMINICK Childress MA null, [facility] 7 09:50:38 Influenz a vaccine needed [id number] 06 Completed 201101/30/2014 RECORDED 04/12/20 12 4:19PM BY MAYRA CHILDRESS, OFFICE VISIT Alcides Negrete, [place] [address] [address] [address], [place], [address] , [facility] 6 14:34:18 Well child [id number] Completed 201101/30/2014 IMPRESSI ON: VAGINAL DISCHARG E, NO PAIN ON EXAM WAIT FOR CULTURES ; RECORDED 04/12/20 12 4:09PM BY MOMO CHEW ON/ADDEN DUM Alcides Negrete, [address] [address], [place], [address] , [facility] 6 14:34:18 Administ ration of tetanus vaccine Completed 201101/30/2014 RECORDED 04/12/20 12 4:09PM BY MOMO CHEW ON/ADDEN DUM Alcides Negrete, [address] [address], [place], [address] , [facility] 6 14:34:18 Acute sinusiti s 65146605 Completed 201101/31/2014 IMPRESSI ON: 3 WEEKS OF COUGH, GREEN SPUTUM, NASAL PRESSURE AND HEADACHE S, TX FOR SINUSITI S; RECORDED 04/12/20 12 4:09PM BY MOMO CHEW ON/HILDA Childress MA [facility] 7 09:50:38 Influenz a vaccine needed [id number] 06 Completed 201101/31/2014 RECORDED 04/12/20 12 4:19PM BY MAYRA CHILDRESS, OFFICE VISIT Alcides Negrete, [place] [address] [address], [place], [address] , [facility] 6 14:34:18 Well child [id number] Completed 201101/31/2014 IMPRESSI ON: VAGINAL DISCHARG E, NO PAIN ON EXAM WAIT FOR CULTURES ; RECORDED 04/12/20 12 4:09PM BY MOMO CHEW ON/ADDBENNETT Negrete, [facility] [address] [facility] [address], [place], [address] , [facility] 6 14:34:18 Administ ration of tetanus vaccine Completed 201101/31/2014 RECORDED 04/12/20 12 4:09PM BY MOMO CHEW ON/ADDEN DOMINICK Negrete, [facility] [address] [facility] [address], [place], [address] , [facility] 6 14:34:18 Clinical finding Completed 201301/07/2014 IMPRESSI ON: ABN PAP, KHANH TO CALL RECORD TESTER ND SET HER UP FOR EVAL AND SEND OPHTHALMIC ASST THE PAP RESULT; RECORDED 10/23/19 14 1:44PM BY ANGEL MARINO MA, MOMO ON/ADDEN DOMINICK Negrete, [facility] [address] [facility] [address], [place], [address] , [facility] 6 14:34:17 Acute pharyngi tis [id number] Completed 201301/06/2017 RECORDED 10/23/19 14 2:09PM BY ALCIDES NEGRETE PA-C, OFFICE VISIT Mayra Childress MA [facility] 7 09:50:41 Allergic rhinitis 03336306 Active 2013 RECORDED 10/23/19 14 2:17PM BY ALCIDES NEGRETE PA-C, OFFICE VISIT Not Available [facility] 3 02:17:09 Allergy to food [id number] Active 2013 IMPRESSI ON: CARRY EPIPEN, PT HAS DONE TRIANING ON EPIPEN USE FOR CAMP COUNSELO R TRAINING , FEELS COMFORTA BLE, AVOID THOSE FOODS; RECORDED 10/23/19 14 1:44PM BY ANGEL MARINO MA, OFFICE VISIT Not Available [facility] 3 02:17:09 Adult health examinat ion Completed 201301/07/2014 IMPRESSI ON: PT IS ACTIVE, EATING WELL; RECORDED 10/23/19 14 1:44PM BY ANGEL MARINO MA, MOMO ON/HILDA Negrete, [facility] [address] [address], [place], [address] , [facility] 6 14:34:18 Dysmenor billy [id number] Completed 201301/07/2014 IMPRESSI ON: NEG REGNANCY TEST TODAY, OK TO GET VARIVAX; RECORDED 10/23/19 14 1:44PM BY ANGEL MARINO MA, KIMBERLYATI ON/HILDA Negrete, [address] [address], [place], [address] , [facility] 6 14:34:17 Speciali zed medical examinat ion Completed 201301/07/2014 IMPRESSI ON: PAP TODAY, COULD HAVE GARDNERE LLA,; RECORDED 10/23/19 14 1:44PM BY ANGEL MARINO MA, ANNOTYESSICA ON/HILDA Negrete, [address] [address] [address], [place], [address] , [facility] 6 14:34:18 Malaise and fatigue [id number] Completed 201301/11/2018 IMPRESSI ON: DOING GREAT, WEANED OFF CELEXA, NO DRINKING , MOOD IS GREAT, EXCELLEN T CHOICES; RECORDED 10/23/19 14 1:44PM BY ANGEL MARINO MA, OFFICE VISIT Nelsy verma, [facility] 8 11:25:11 Patient status finding [id number] Completed 201301/06/2017 RECORDED 10/23/19 14 1:45PM BY ANGEL MARINO MA, OFFICE VISIT ANDREW Chew, [facility] 7 09:50:35 Screenin g for malignan t neoplasm of cervix Completed 201301/07/2014 RECORDED 10/23/19 14 1:44PM BY ANGEL MARINO MA, KIMBERLYATI ON/ADDBENNETT Negrete, [facility] [address] [address], [place], [phone] , [facility] 6 14:34:18 Chronic sinusiti s [id number] Completed 201301/11/2018 RECORDED 10/23/19 14 2:10PM BY ALCIDES NEGRETE PA-C, [facility] 8 11:25:14 Candidal vulvovag initis [id number] Completed 201301/07/2014 RECORDED 10/23/19 14 1:44PM BY ANGEL MARINO MA, MOMO ON/HILDA Negrete, [place] [id number] [address], [place], [phone] , [facility] 6 14:34:17 Clinical finding Completed 201301/30/2014 IMPRESSI ON: ABN PAP, KHANH TO CALL RECORD TESTER ND SET HER UP FOR EVAL AND SEND OPHTHALMIC ASST THE PAP RESULT; RECORDED 10/23/19 14 1:44PM BY ANGEL MARINO MA, MOMO ON/HILDA Negrete, [facility] [address] [address], [place], [address] , [facility] 6 14:34:18 Adult health examinat ion Completed 201301/30/2014 IMPRESSI ON: PT IS ACTIVE, EATING WELL; RECORDED 10/23/19 14 1:44PM BY ANGEL MARINO MA, MOMO ON/HILDA Negrete, [facility] [address] [address], [place], [address] , [facility] 6 14:34:18 Dysmenor billy [id number] Completed 201301/30/2014 IMPRESSI ON: NEG REGNANCY TEST TODAY, OK TO GET VARIVAX; RECORDED 10/23/19 14 1:44PM BY ANGEL MARINO MA, MOMO ON/HILDA Negrete, [facility] [address], [place], [address] , [facility] 6 14:34:17 Speciali zed medical examinat ion Completed 201301/30/2014 IMPRESSI ON: PAP TODAY, COULD HAVE GARDNERE LLA,; RECORDED 10/23/19 14 1:44PM BY ANGEL MARINO MA, MOMO ON/HILDA Negrete, [facility] [address] [facility] [address], [place], [address] , [facility] 6 14:34:18 Screenin g for malignan t neoplasm of cervix Completed 201301/30/2014 RECORDED 10/23/19 14 1:44PM BY ANGEL MARINO MA, MOMO ON/HILDA Negrete, [facility] [address], [place], [address] , [facility] 6 14:34:18 Candidal vulvovag initis [id number] Completed 201301/30/2014 RECORDED 10/23/19 14 1:44PM BY ANGEL MARINO MA, MOMO ON/HILDA Negrete, [facility] [address], [place], [address] , [facility] 6 14:34:17 Clinical finding Completed 201301/31/2014 IMPRESSI ON: ABN PAP, KHANH TO CALL RECORD TESTER ND SET HER UP FOR EVAL AND SEND OPHTHALMIC ASST THE PAP RESULT; RECORDED 10/23/19 14 1:44PM BY ANGEL MARINO MA, MOMO ON/HILDA Negrete, [facility] [address], [place], [address] , [facility] 6 14:34:18 Adult health examinat ion Completed 201301/31/2014 IMPRESSI ON: PT IS ACTIVE, EATING WELL; RECORDED 10/23/19 14 1:44PM BY ANGEL MARINO MA, ANNOTATI ON/HILDA Negrete, [facility] [address] [address], [place], [address] , [facility] 6 14:34:18 Dysmenor billy [id number] Completed 201301/31/2014 IMPRESSI ON: NEG REGNANCY TEST TODAY, OK TO GET VARIVAX; RECORDED 10/23/19 14 1:44PM BY ANGEL MARINO MA, ANNOTATI ON/HILDA Negrete, [facility] [address] [address], [place], [address] , [facility] 6 14:34:17 Speciali zed medical examinat ion Completed 201301/31/2014 IMPRESSI ON: PAP TODAY, COULD HAVE GARDNERE LLA,; RECORDED 10/23/19 14 1:44PM BY ANGEL MARINO MA, ANNOTATI ON/HILDA Negrete, [facility] [address] [address], [place], [address] , [facility] 6 14:34:18 Screenin g for malignan t neoplasm of cervix Completed 201301/31/2014 RECORDED 10/23/19 14 1:44PM BY ANGEL MARINO MA, ANNOTATI ON/HILDA Negrete, [facility] [address] [address], [place], [address] , [facility] 6 14:34:18 Candidal vulvovag initis [id number] Completed 201301/31/2014 RECORDED 10/23/19 14 1:44PM BY ANGEL MARINO MA, ANNOTATI ON/ADDEN DOMINICK Negrete [facility] [address] [address], [place], [address] , [facility] 6 14:34:17 History of Lyme disease 532320471 Active 2017 Not Available [facility] 3 02:17:09 Hypocalc emia 1453210 Completed 201702/14/2019 Nelsy verma, [facility] 9 14:56:25 Family history of breast cancer 313539681 Active 2019 Not Available [facility] 3 02:17:09 Anti-nuc lear factor detected 859272802 Active 2021 Not Available [facility] 3 02:17:09 Severe major depressi on, single episode 29184115327 5 Active 2022 Em verma, [facility] 3 12:32:33 Epigastr ic pain 59845930 Active 2024 NICHO Nicholson, [facility] [address] [address], [place], [address] , [facility] 5 09:02:37 Mucous membrane dryness 174276747 Active 2024 diagnose d by function al medicine SHWETA ANDERSON MD [address] [address], [place], [address] , [facility] 5 09:14:34 Notes:Some problems listed i n Document: #[id number] could not be added to this patient's chart. Please review this document and add these problems to the patient's chart manually as needed. Problem Notes None recorded. Procedures Surgical History Date Name Laterality Status Provider Name and Address Organization Details Recorded Time 11/13/19 25 endoscopic carpal tunnel release completed Evelyn Weinberg MA [facility] 01/30/2025 09:07:17 10/05/19 25 endoscopic carpal tunnel release completed Evelyn Weinberg MA [facility] 01/30/2025 09:06:48 01/25/20 22 Date of Last Pap Smear completed Mayra Childress MA [facility] 05/02/2022 14:46:02 10/24/19 20 delivery procedure completed Cherrie Horowitz [facility] 02/12/2020 10:01:43 05/22/20 18 Date of Last Colonoscopy completed Tena Li [facility] 05/23/2018 11:36:18 05/22/20 18 Colonoscopy completed Mayra Childress MA [facility] 05/22/2018 15:41:01 05/22/20 18 Endoscopic us exam esoph completed Tena Li [facility] 05/23/2018 11:33:20 Imaging Results None recorded. Procedure Notes None recorded. Medical Equipment None Reported. Allergies Allergen ID Allergen Name Allergen Category Reaction Reaction Severity Criticality Documentation Date Start Date Code Code System Note Provider Name and Address Organization Details Recorded Time 3379 animal derived oil Not available hives Not available Not available 01/07/20142013 ANDREW Garcia [facility] 6 14:02:37 3380 apple extract food hives Not available Not available 01/07/20142013 69225 65 RxNorm ANDREW Chew [facility] 2 14:42:38 No known drug allergies Medications Name Sig Start Date Stop Date Status Note LastModified by Organization Details LastModified Time amoxicill in 500 mg capsule BID 09/17 completed RECORDED 09/18/19 11 9:05AM BY NELSY Seymour MD, MEDICATI ON AUTO-BIJAL CTIVATIO N; Not Available Not Available Not Available doxycycli ne hyclate 100 mg capsule Take 1 capsule twice a day by oral route for 21 days. 09/25 completed Not Available Not Available Not Available clindamyc in HCl 300 mg capsule TAKE 1 CAPSULE BY MOUTH 3 TIMES A DAY FOR 10 DAYS 07/05 completed Not Available Not Available Not Available ibuprofen 800 mg tablet TAKE 1 TABLET BY MOUTH EVERY 8 HOURS NEEDED FOR PAIN (MILD/MO DERATE) FOR UP TO 10 DAYS 10/05 completed Not Available Not Available Not Available fluconazo le 150 mg tablet TAKE 1 TABLET EVERY WEEK BY ORAL ROUTE FOR 28 DAYS. 10/05 completed Not Available Not Available Not Available valacyclo vir 1 gram tablet TAKE 1 TABLET BY MOUTH EVERY 12 HOURS FOR 7 DAYS 05/02 completed Not Available Not Available Not Available sumatript an 100 mg tablet PLEASE SEE ATTACHED FOR DETAILED DIRECTIO NS 05/02 completed Not Available Not Available Not Available prochlorp erazine maleate 5 mg tablet TAKE 1 TABLET BY MOUTH EVERY 6 HOURS IF NEEDED FOR NAUSEA OR VOMITING . 10/05 completed Not Available Not Available Not Available ondansetr on HCl 4 mg tablet 02/14 completed Not Available Not Available Not Available prednison e 20 mg tablet TAKE 2 TABLETS BY MOUTH EVERY DAY FOR 5 DAYS 10/05 completed Not Available Not Available Not Available penicilli n V potassium 500 mg tablet TAKE 1 TABLET BY MOUTH TWICE A DAY FOR 10 DAYS 07/05 completed Not Available Not Available Not Available clotrimaz ole 1 % vaginal cream INSERT 1 APPLICAT OR(S)FUL EVERY DAY BY VAGINAL ROUTE AT BEDTIME FOR 7 DAYS. 02/11 completed Not Available Not Available Not Available metronida zole 500 mg tablet TAKE 1 TABLET BY MOUTH TWICE A DAY DIRECTED FOR 7 DAYS 11/17 completed Not Available Not Available Not Available valacyclo vir 500 mg tablet TAKE 1 TABLET BY MOUTH TWICE A DAY 05/02 completed Not Available Not Available Not Available sulfameth oxazole 800 mg-trimet hoprim 160 mg tablet TAKE 1 TABLET BY MOUTH EVERY 12 HOURS FOR 7 DAYS 04/20 completed Not Available Not Available Not Available omeprazol e 40 mg capsule,d elayed release TAKE 1 CAPSULE BY MOUTH EVERY DAY DIRECTED FOR 30 DAYS 2024 active Not Available Not Available Not Avai lable Miconazol e-7 2 % vaginal cream INSERT 1 APPLICAT ORFUL VAGINALL Y AT BEDTIME FOR 7 DAYS 03/31 completed Not Available Not Available Not Available hydrocort isone 2.5 % topical cream with perineal applicato r APPLY SPARINGL Y TO AFFECTED AREA 2 TO 4 TIMES A DAY 05/02 completed Not Available Not Available Not Available Fluticaso ne Propionat e (Inhal) 50 mcg/BLIST inhl powd 1 SPRAY EACH NOSTRIL DAILY 2013 active RECORDED 10/23/19 14 2:34PM BY XAVIER BRAVO MD, OFFICE VISIT; Not Available Not Available Not Available amoxicill in 875 mg tablet active Not Available Not Available Not Available citalopra m 20 mg tablet DAILY 04/12 completed RECORDED 04/12/20 12 4:19PM BY MAYRA CHILDRESS, OFFICE VISIT; Not Available Not Available Not Available lorazepam 0.5 mg tablet TAKE 1 TABLET BY MOUTH TWICE A DAY NEEDED active Not Available Not Available No t Available ciproflox acin 0.3 % eye drops active Not Available Not Available Not Available benzonata te 100 mg capsule 02/14 completed Not Available Not Available Not Available Nortrel 0.5/35 (28) 0.5 mg-35 mcg tablet Take 1 tablet every day by oral route. 03/31 completed Not Available Not Available Not Available cephalexi n 500 mg capsule 02/11 completed Not Available Not Available Not Available Nortrel 1/35 (21) 1 mg-35 mcg tablet TAKE 1 TABLET DAILY active Not Available Not Available No t Available oseltamiv ir 75 mg capsule 08/15 completed Not Available Not Available Not Available omeprazol e 20 mg capsule,d elayed release Take 1 capsule every day by oral route. 02/14 completed Not Available Not Available Not Available monteluka st 10 mg tablet 01/06 completed Not Available Not Available Not Available mupirocin 2 % topical ointment APPLY TWICE DAILY TOP AFFECTED AREA FOR ONE WEEK 07/05 completed Not Available Not Available Not Available azelastin e 137 mcg (0.1 %) nasal spray spray into each nare prn 08/17 completed Not Available Not Available Not Available epinephri ne 0.3 mg/0.3 mL injection , auto-inje ctor INJECT 0.3 MILLILIT ER (0.3 MG) BY INTRAMUS CULAR ROUTE ONCE NEEDED FOR ANAPHYLA XIS active Not Available Not Available No t Available ibuprofen 600 mg tablet TAKE 1 TABLET BY MOUTH THREE TIMES A DAY FOR 7 DAYS 10/05 completed Not Available Not Available Not Available methylpre dnisolone 4 mg tablets in a dose pack active Not Available Not Available Not Available fluticaso ne propionat e 50 mcg/actua tion nasal spray,martin pension [place] 2 sprays every day by intranas al route as directed for 30 days. 04/20 completed Not Available Not Available Not Available sertralin e 50 mg tablet TAKE 1 TABLET BY MOUTH EVERY DAY 05/02 completed Not Available Not Available Not Available loratadin e 10 mg tablet DAILY 2013 active RECORDED 10/23/19 14 2:34PM BY XAVIER BRAVO MD, OFFICE VISIT; Not Available Not Available Not Available norethind keren 1 mg-ethiny l estradiol 35 mcg tablet QD 2013 active RECORDED 06/29/19 14 8:10PM BY NELSY Seymour MD, REFILL REQUEST; Not Available Not Available Not Available amoxicill in 875 mg-potass ium clavulana te 125 mg tablet TAKE 1 TABLET BY MOUTH EVERY 12 HOURS FOR 10 DAYS 10/05 completed Not Available Not Available Not Available iron 65 mg tablet Take 1 tablet twice a week by oral route as directed . 02/11 completed Not Available Not Available Not Available oxycodone 5 mg tablet TAKE 1 TABLET BY MOUTH EVERY 6 HOURS NEEDED FOR 2 DAYS 01/15 completed Not Available Not Available Not Available neomycin- polymyxin -hydrocor t 3.5 mg-10,000 unit/mL-1 % ear drops,martin p TAKE 4 DROPS (OTIC (EAR)) 3 TIMES PER DAY FOR 7 DAYS USE IN AFFECTED EAR 11/17 completed Not Available Not Available Not Available Vitamin 27 mg iron-0.8 mg tablet TAKE 1 TABLET BY MOUTH EVERY DAY 05/02 completed Not Available Not Available Not Available ciclopiro x 0.77 % topical suspensio n APPLY TO AFFECTED NAILS AND SURROUND ING SKIN NIGHTLY. REMOVE WITH ALCOHOL EVERY 7 DAYS. 10/05 completed Not Available Not Available Not Available bupropion HCl XL 300 mg 24 hr tablet, extended release TAKE 1 TABLET BY MOUTH EVERY DAY 05/02 completed Not Available Not Available Not Available bupropion HCl XL 150 mg 24 hr tablet, extended release TAKE 1 TABLET BY MOUTH EVERY DAY IN THE MORNING 02/06 completed dosage increase d Not Available Not Available Not Available escitalop radha 5 mg tablet TAKE 1 TABLET BY MOUTH EVERY DAY 05/02 completed Not Available Not Available Not Available nitrofura ntoin monohydra te/macroc rystals 100 mg capsule TAKE 1 CAPSULE BY MOUTH TWICE A DAY DIRECTED FOR 5 DAYS 02/11 completed Not Available Not Available Not Available duloxetin e 20 mg capsule,d elayed release TAKE 1 CAPSULE BY MOUTH EVERY DAY IN THE MORNING active Not Available Not Available No t Available naltrexon e active given by function al medicine Not Available Not Available Not Available multivita min 1 po qd active Not Available Not Available Not Available Vitamin 1 po qd 04/20 completed Not Available Not Available Not Available Probiotic 1 po qd active Not Available Not Av ailable Not Available Banophen 50 mg capsule TAKE 1 CAPSULE BY MOUTH EVERY 4 TO 6 HOURS NEEDED FOR ALLERGIC REACTION 05/02 completed Not Available Not Available Not Available lidocaine 5 % topical ointment APPLY TO AFFECTED AREA 1-4 TIMES DAILY NEEDED 01/15 completed Not Available Not Available Not Available EpiPen 2-Logan NEEDED PRN ALLERGIC REACTION 2010 active RECORDED 10/23/19 14 1:44PM BY ANGEL MARINO MA, OFFICE VISIT; Not Available Not Available Not Available Fluarix Quad 0067-3802 (PF) 60 mcg (15 mcg x 4)/0.5 mL IM syringe 05/04 completed Not Available Not Available Not Available COVID-19 test specimen collectio n USE DIRECTED 03/31 completed Not Available Not Available Not Available Vitals Date Recorded Body height Body mass index (BMI) Body weight Heart rate Oxygen saturation Oxygen saturation in Arterial blood by Pulse oximetry Body temperature Systolic And Diastolic Provider Name and Address Organization Details Last Updated DateTime 5 163.2 cm 23.8 kg/m2 11402.9 3 g 82 /min 100 % 100 % 98.2 [degF] 106/64 mm[Hg] Salma dixon MA [facility] 5 14:59:56 Date Recorded Body height Body mass index (BMI) Body weight Heart rate Oxygen saturation Oxygen saturation in Arterial blood by Pulse oximetry Body temperature Systolic And Diastolic Provider Name and Address Organization Details Last Updated DateTime 5 163.2 cm 23.7 kg/m2 04114.3 4 g 86 /min 100 % 100 % 98 [degF] 111/62 mm[Hg] Evelyn Weinberg MA [facility] 5 09:04:15 Date Recorded Body height Body mass index (BMI) Body weight Oxygen saturation Oxygen saturation in Arterial blood by Pulse oximetry Heart rate Body temperature Systolic And Diastolic Provider Name and Address Organization Details Last Updated DateTime 3 163.2 cm 23.2 kg/m2 56789.2 6 g 99 % 99 % 80 /min 98.1 [degF] 104/67 mm[Hg] Mayra Childress MA [facility] 3 09:20:50 Date Recorded Body height Provider Name an d Address Organization Details Last Updated DateTime 03/13/2023 163.2 cm Mayra Childress MA [facility] 03/13/2023 15:20:22 Date Recorded Body height Body mass index (BMI) Body weight Heart rate Oxygen saturation Oxygen saturation in Arterial blood by Pulse oximetry Body temperature Systolic And Diastolic Provider Name and Address Organization Details Last Updated DateTime 4 163.2 cm 24.1 kg/m2 60195.6 2 g 105 /min 98 % 98 % 98 [degF] 100/65 mm[Hg] Hayley Taylor MA [facility] 4 13:44:55 Social History Question Answer Notes LastModified by Organizat ion Details LastModified Time Tobacco Smoking Status Never Smoker Mayra Childress MA [facility] 12/18/2014 13:15:12 Is Blood Transfusion Acceptable In An Emergency? Yes [email or web address] Information not available 12/24/2015 What Is Your Level Of Caffeine Consumption? Occasional Coffee Information not available 01/15/2025 How Much Tobacco Do You Chew? None Information not available 10/01/2015 What Type Of Diet Are You Following? REGULAR Information not available 01/15/2025 Which Illicit Or Recreational Drugs Have You Used? Marijuana Dispensery [email or web address] Information not available 02/14/2019 Education 4 Year College [email or web address] Information not available 05/02/2022 Live Alone Or With Others? With Others [place] [email or web address] Information not available 05/02/2022 Do You Take Precautions To Prevent Distracted Driving? Yes [email or web address] Information not available 12/24/2015 How Often Do You Need To Have Someone Help You When You Read Instructions, Pamphlets, Or Other Written Material From Your Doctor Or Pharmacy? Never [email or web address] Information not available 03/31/2021 Have You Served In The ? No [email or web address] Information not available 02/14/2019 *[facility] ONLY* Are You Presently Prescribed Opioid Medication By PCP Or Specialist? If YES -Provider Assess The Benefit For Other, Non-opioid Pain Therapies Instead, Even If The Patient Does Not Have OUD But Is Possibly At Risk. No [email or web address] Information not available 03/31/2021 What Was The Date Of Your Most Recent Tobacco Screening? 01/15/2025 Information not available 01/15/2025 How Many Children Do You Have? 2 [email or web address] Information not available 05/02/2022 Do You Use Protection During Sex? Usually [email or web address] Information not available 05/02/2022 Do You Use Your Seat Belt Or Car Seat Routinely? Yes [email or web address] Information not available 03/31/2021 Seat Belts Used Routinely Yes [email or web address] Information not available 05/02/2022 Are You Sexually Active? Yes Information not available 10/01/2015 Smoke Alarm In Home Yes [email or web address] Information not available 05/02/2022 Do You Have Smoke And Carbon Monoxide Detectors In Your Home? Yes [email or web address] Information not available 03/31/2021 At What Age Did You Start Smoking Tobacco? 0 Information not available 10/01/2015 Are You Passively Exposed To Smoke? No Information not available 10/01/2015 How Much Tobacco Do You Smoke? No Information not available 10/01/2015 General Stress Level High Information not available 05/02/2022 Do You Use Sunscreen Routinely? Yes [email or web address] Information not available 12/18/2014 How Many Years Have You Smoked Tobacco? 0 Information not available 10/01/2015 Sex: Unknown Functional Status Question Answer Note LastModified by Organizat ion Details LastModified Time Do you use any illicit or recreational drugs? No Information not available 01/15/2025 Do you or have you ever used any other forms of tobacco or nicotine? No Information not available 01/15/2025 What is your level of alcohol consumption? Occasional [email or web address] Information not available 12/18/2014 Do you or have you ever used smokeless tobacco? Never used smokeless tobacco [email or web address] Information not available 02/14/2019 Are you currently employed? Yes [email or web address] Information not available 02/14/2019 Are you able to walk independently without assistance or assistive devices? YESWOREST [email or web address] Information not available 05/02/2022 Are you able to care for yourself independently? 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 Never used electronic cigarettes [email or web address] Information not available 05/02/2022 What is your exercise level? Moderate [email or web address] Information not available 12/18/2014 Mental Status None recorded. Family History Relationship Description Onset Age of this Age Resolved Age Notes LastModified by Organization Details LastModified Time Maternal Grandmother Carcinoma in situ of breast [email or web address] Not available 05/02 14:42:43 Maternal Grandmother Malignant neoplasm of breast Not available 05/02 14:42:43 Maternal Aunt Carcinoma in situ of breast [email or web address] Not available 05/02 14:42:43 Maternal Aunt Malignant neoplasm of breast [email or web address] Not available 05/02 14:42:43 Mother At risk of breast cancer [email or web address] Not available 05/02 14:42:43 Notes:NO FH of colon cancer pts mom tested positive for DEANNA gene (breast and reproductive organs as well as prostate) Medical History Condition Response Anxiety Disorder Y Anemia Y Depression Y Allergies Y Gynecological History Statement/Question Response Date of Last Pap Smear 01/24/2022 Date of Last Colonoscopy 05/22/2018 Obstetrics History GPAL:G 0 P 0 0 0 0 Immunizations Vaccine Type Date Status Note Provider Nam e and Address Organization Details Recorded Time Influenza, split virus, quadrivalent, preservative 8 completed Not Available [facility] 03/13/2023 14:34:03 Tdap 0 completed Not Available [facility] 09/08/2022 02:17:09 Tdap 1 completed Not Available [facility] 09/08/2022 02:17:09 COVID-19, mRNA, LNP-S, PF, 30 mcg/0.3 mL dose 1 completed Not Available [facility] 09/08/2022 02:17:09 COVID-19, mRNA, LNP-S, PF, 30 mcg/0.3 mL dose 1 completed Not Available [facility] 09/08/2022 02:17:09 Influenza, split virus, quadrivalent, PF 8 completed Not Available [facility] 09/08/2022 02:17:10 Influenza, split virus, quadrivalent, PF 1 completed Not Available [facility] 09/08/2022 02:17:10 Influenza, MDCK, quadrivalent, PF 2 completed Not Available [facility] 09/08/2022 02:17:09 meningococcal MCV4P 7 completed Not Available [facility] 09/08/2022 02:17:09 Tdap 9 completed Not Available [facility] 09/08/2022 02:17:09 Tdap 4 completed ANDREW Gross [facility] 05/02/2024 13:40:18 DTaP 2 completed Not Available [facility] 09/08/2022 02:17:10 DTaP 2 completed Not Available [facility] 09/08/2022 02:17:10 DTaP 2 completed Not Available [facility] 09/08/2022 02:17:10 DTaP 3 completed Not Available [facility] 09/08/2022 02:17:10 DTaP 7 completed Not Available [facility] 09/08/2022 02:17:10 IPV 2 completed Not Available [facility] 09/08/2022 02:17:09 IPV 2 completed Not Available [facility] 09/08/2022 02:17:09 IPV 3 completed Not Available [facility] 09/08/2022 02:17:09 IPV 7 completed Not Available [facility] 09/08/2022 02:17:09 MMR 3 completed Not Available [facility] 09/08/2022 02:17:09 MMR 6 completed Not Available [facility] 09/08/2022 02:17:09 Hib (HbOC) 2 completed Not Available [facility] 09/08/2022 02:17:09 Hib (HbOC) 2 completed Not Available [facility] 09/08/2022 02:17:09 Hib (HbOC) 2 completed Not Available [facility] 09/08/2022 02:17:09 Hib (HbOC) 3 completed Not Available [facility] 09/08/2022 02:17:09 Td (adult), 2 Lf tetanus toxoid, preservative free, adsorbed 4 completed Not Available [facility] 09/08/2022 02:17:09 Hep B, adult 6 completed Not Available [facility] 09/08/2022 02:17:09 Hep B, adult 6 completed Not Available [facility] 09/08/2022 02:17:09 Hep B, adult 6 completed Not Available [facility] 09/08/2022 02:17:09 Tdap 9 completed Not Available [facility] 09/08/2022 02:17:09 varicella 4 completed Not Available [facility] 09/08/2022 02:17:09 Meningococcal MCV4O 9 completed Not Available [facility] 09/08/2022 02:17:09 influenza, seasonal, intradermal, preservative free 2 completed Not Available [facility] 09/08/2022 02:17:10 varicella 4 completed Not Available [facility] 09/08/2022 02:17:09 Past Encounters Encounter ID Performer Location Encounter Start Date Encounter Closed Date Diagnosis/Indication Diagnosis SNOMED-CT Code Diagnosis ICD10 Code Diagnosis IMO Codes Diagnosis Note [id number] [facility]Comm [facility] [address] [facility] [place] [address] 09/03/2010 00:00:00 [id number] autoEComm erce [address] [facility] [place] [address] 09/07/2011 00:00:00 [id number] autoEComm erce [address] [facility] [place] [address] 10/06/2011 00:00:00 [id number] autoEComm erce [address] [facility] [place] [address] 04/12/2012 00:00:00 [id number] autoEComm erce [address] [facility] [place] [address] 09/11/2013 00:00:00 [id number] autoEComm erce [address] [facility] [place] [address] 10/22/2013 00:00:00 [id number] Nelsy raza MD Main Office [address] [facility] [address] [place] [address] 12/18/2014 13:03:34 12/18/2014 13:49:18 Adult health examination [id number] pap is utd, is exercising , eating better Anxiety 58198149 anxiety i s flaring as she looks for a job, hx of depression and anxiety, pt is ready for meds and counseling , start sertraline and see me in 2 months and start counseling [id number] Nelsy raza MD Main Office [address] [place] [address] 02/13/2015 10:23:40 02/13/2015 11:14:44 Anxiety 03620078 see above Fatigue 17368768 mood is doign well, not on meds nad does not think she needs [id number] ROSMERY Barney Main Office [address] [address] [place] [address] 10/01/2015 13:57:46 10/01/2015 14:34:04 Acute sinusitis 72347024 J01.90 Symptomati c treatment- lots of fluids, rest, tea with honey, OTC cough drops/ cough med as needed, humidifier , nasal sinus rinses as needed, continue flonase, augmentin as prescribed . [id number] Nelsy raza MD Main Office [address] [address] [place] [address] 12/24/2015 12:59:07 12/24/2015 13:52:14 Adult health examination 806902402 Z00.00 pap is utd, is exercising , eating better Contact dermatitis 86432 004 L25.9 [id number] Nelsy raza MD Main Office [address] [address] [place] [address] 01/06/2017 09:31:25 01/06/2017 10:51:49 Adult health examination 309197887 Z00.00 pap is utd, is exercising , eating better Seasonal a llergic rhinitis 505158667 J30.2 on meds, severe symptoms, pt to set up allergy appt Requires a meningitis vaccination 731951232 Z23 only had one, 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, pt not by hx, recent period, on OCPS daily, took one sugar pill by accident but has had period since, pt consents to menactra [id number] Nelsy raza MD Main Office [address] [address] [place] [address] 08/17/2017 13:10:03 08/17/2017 13:59:10 Pain of multiple joints 62563960 M25.50 see hx, sounds viral, will check labs below to look for underlying causes Fatigue 74713379 R53.83 check labs below [id number] Nelsy raza MD Main Office [address] [address] [place] [address] 09/25/2017 10:40:02 09/25/2017 11:38:29 Malaise and fatigue 803901771 R53.83 much better History of Lyme disease 767275348 Z86.19 resolved with 21 days of doxycyclin e [id number] Nelsy raza MD Main Office [address] [address] [place] [address] 01/11/2018 10:50:03 01/11/2018 11:35:56 Adult health examination 101049391 Z00.00 pap is utd, is exercising , eating better Hypercholesterolemia 136 32327 E78.00 check baseline [id number] Reza Jacobs MD Main Office [address] [address] [place] [address] 05/04/2018 09:20:18 05/04/2018 10:48:08 Dysuria 78287072 R30.0 Atypical UTI symptoms. Will treat depending on UA and culture results. Abdominal pain 79396802 R10.9 ? GERD vs PUD vs hpylori vs colitis vs IBS. With reported BRBPR will start with labs and PPI trial but GI evaluation is needed. Pt advised to call if symptoms change/wor sen in the meantime or if GI appt is not received. Hematochezia 438151213 K 62.5 [id number] Nelsy raza MD Main Office [address] [address] [place] [address] 05/11/2018 08:42:51 05/11/2018 09:32:28 Abdominal pain 78499742 R10.9 2 weeks, wti bloating, could be GI illness though pt very nervous, will get in with GI sooner, actually they have a cancellati on today so will see DR Patterson this afternoon. past workup reviewed including note and labs, we called and got pt in with GI today Blood-tinged feces 88360 67822 15051 K92.1 for over a eyar, GI eval Liver func tion tests outside reference range 156359984 R94.5 very mild, around 40, GI to eval [id number] Nelsy raza MD Main Office [address] [address] [place] [address] 02/14/2019 14:19:14 02/14/2019 15:08:12 Adult health examination 458201514 Z00.00 pap is utd, will restart , eating better and is exercising Administra tion of viral vaccine 88018385 Z23 Anxiety 97470593 F41.9 discussed ways to help, offered counseling and meds, pt to consider, discussed limiting medical marijuana use as it seems to cause rebound anxiety in pt [id number] Nelsy raza MD Main Office [address] [facility] [address] [place] [address] 08/15/2019 09:43:50 08/15/2019 10:16:24 Anxiety 59302991 F41.9 pt is doing better, not on meds, not using marijuana. is 7 months , is doing well. 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 [id number] Nelsy raza MD Main Office [address] [facility] [address] [place] [address] 03/31/2021 15:22:19 03/31/2021 16:16:45 Adult health examination 994927381 Z00.00 is continue activity Allergic rhinitis 732164 04 J30.9 Anxiety 27503867 F41.9 doing better, not on meds Needs infl uenza immunization 881234792 Z23 Pain of hip region 55944 002 M25.552 left hip pt to set up PT Family his tory of breast cancer 804846342 Z80.3 mom tested positive for DEANNA gene pt will get tested next month [id number] Nelsy raza MD Main Office [address] [address] [place] [address] 05/24/2021 10:02:29 05/24/2021 10:53:43 [id number] Izabela Davies MD Main Office [address] [address] [place] [address] 11/17/2021 14:22:17 11/17/2021 15:51:26 Acute otitis media 6790802 H66.92 Can use otc pain reliever as needed, start antibiotic today if test is negative and take with food. Call If not improving over the next few days and sooner if unable to tolerate med. Pt will do a home test prior to taking the medication . She states she is not but not using contracept ion. No missed or late menses. Flonase once a day, call if not improving Acute sinusitis 86199052 J01.90 steam, flonase, keep hydrated, If not better in a few day or at least improving to call back Diarrhea 00547114 R19.7 likely from amoxicilli n, will stop this, bland diet, rest and hydration [id number] Reza Jacobs MD Main Office [address] [address] [place] [address] 04/20/2022 15:42:54 04/20/2022 16:45:41 Insect bite, nonvenomous, of neck 180282476 S10.96XA multiple bite wright L side of neck, unknown cause --- no recent tick bite, but + h/o lyme -- wonder if has babesiosis /ehrlichia , other? -- see labs below Fatigue 31242811 R53.83 Pain of mu ltiple joints 26324383 M25.50 Headache 32497391 R51.9 none since last week - cont monitor - if worse, then consider imitrex prn Vitamin D deficiency 347 31758 E55.9 [id number] Nelsy raza MD Main Office [address] [address] [place] [address] 05/02/2022 14:19:53 05/02/2022 15:51:28 Adult health examination 972251899 Z00.00 Pt is in good general health. Social and family history reviewed. Immunizati ons reviewed, advised annual flu shot and covid booster. 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 , Reviewed diet and exercise. Family his tory of breast cancer 193726691 Z80.3 FH MGM and mat aunt, pt has been screened by genetics. Major depr essive disorder 988069187 F32.9 Pt aware SSRIs can take a full 4-6 weeks for medication to work, will continue to take med for the entire time, do not stop med abruptly. Will use 1/2 tab daily x 1 week, then 1 tabs daily. Side effects discussed. Patient verbalizes understand ing and agrees with plan. F/U in 6 weeks. Call if any side effects. Melanocyti c nevus of skin 870673137 D22.9 Suspicious appearing irreg dark lesion under left nail and small area under the right nail. Will send to dermatolog y for evaluation mello. [id number] Reza Jacobs MD Telehealt h [address] [facility] [place] [address] 07/05/2022 14:24:00 07/05/2022 16:47:50 Anti-nuclear factor detected 353651801 R76.8 fol by rheum - reviewed last note - agree c pending neuro eval 3.23 Migraine 48741052 G43.90 9 see above - pending neuro eval 3.23 Chronic sinusitis 668368 00 J32.9 with sinus griffin's - see above - will rx c abx and pred pulse, avoid nsaids while on pred., will check ct sinuses and get ent eval [id number] Mireille mirza, WHEEL BORER Main Office [address] [facility] [address] [facility] [place] [address] 10/05/2022 15:02:46 10/05/2022 16:04:51 Anxiety 86757482 F41.9 Pt would like to try sertraline again, agrees to give it 4-6 weeks and call if any side effects. Major depr essive disorder 778055237 F32.2 Pt aware SSRIs can take a full 4-6 weeks for medication to work, will continue to take med for the entire time, do not stop med abruptly. Will use 1/2 tab daily x 1 week, then 1 tabs daily. Side effects discussed. Patient verbalizes understand ing and agrees with plan. F/U in 6 weeks. Call if any side effects or changes in mood or if any SI or HI Short tem followup.. [id number] Mireille mirza, WHEEL BORER Main Office [address] [place] [address] 12/23/2022 13:26:08 12/23/2022 14:08:59 Severe major depression, single episode 2456039380 05 F32.2 Better with sertraline 50 mg but having sexual side effects, will add bupropion. Short term followup. call if not helping. She has therapist and is doing much better, no SI at this time, good support at home Fatigue 60000971 R53.83 Goiter 4779771 E04.9 Has had full thyroid in the past but never had US, will do labs and US to evaluate. [id number] SHWETA ANDERSON MD Main Office [address] [place] [address] 02/06/2023 09:03:02 02/06/2023 09:42:04 Severe major depression, single episode 4544749718 05 F32.2 - PHQ-9 of 5- some improvemen t noted however patient is still having fatigue and emotional lability- c/w sertraline 50mg QD, not increased due to pt having sexual side effects- as symptoms not yet optimized, increased bupropion XL to 300mg QD- pt referred to psychiatry -> advised to contact insurance to find providers in her area. she will also speak to them and ADHD testing- pt advised to contact therapist again as it would be beneficial - RTC in 1 month by [id number] SHWETA ANDERSON MD Main Office [address] [place] [address] [address] 03/13/2023 14:32:40 03/13/2023 16:45:04 Severe major depression, single episode 6375376509 05 F32.2 - improved- PHQ-9 of 3 (was 5 on last visit- c/w sertraline 50mg QD, not increased due to pt having sexual side effects- c/w bupropion XL to 300mg QD as it has provided improved- pt referred to psychiatry -> advised to contact insurance to find providers in her area. she will also speak to them and ADHD testing- pt advised to contact therapist again as it would be beneficial Twitching eye 949582374 H55.89 - bilateral at the same time- thyroid levels are normal- pt advised to follow-up with [facility] [id number] SHWETA ANDERSON MD Main Office [address] [place] [address] 05/02/2024 13:29:49 05/02/2024 14:00:32 Bilateral carpal tunnel syndrome 7464909224 4023242 G56.03 - Nocturnal wrist splinting in the neutral position- universal wrist brace bilateral- Medication s- ibuprofen as needed- Electrodia gnostic studies ordered Influenza vaccination declined 714237816 Z28.21 Pain of mu ltiple joints 82339928 M25.50 - currently located in the bilateral hips, knees, shoulder and mildly in the back- ordered repeat rheumatolo gical study- will also check for lymp and parvo- last seen by samina on 07/2022: RAMSEY 1-160 speckled pattern, diagnosed with fibromyalg ia- depending on work-up may have patient follow with rheum [id number] Reza Jacobs MD Main Office [address] [place] [address] 01/15/2025 14:50:32 01/15/2025 15:32:36 Epigastric pain 26062032 R10.13 19665 Pancreatit is vs cholecysti tis/cholel ithiasis- Epigastric pain with radiation to middle back, accompanie d by nausea. Tender to palpation and percussion - Ordering CMP, amyl+lipas e, CRP, CBC. Plan to follow up with patient pending results.- Advised not to take NSAIDs, acetaminop hen, drink alcohol. Advised bland diet, increased fluid intake, pending labs. Patient declined Zofran at this time. [id number] SHWETA ANDERSON MD Main Office [address] [facility] [address] [place] [address] 01/30/2025 08:59:23 01/30/2025 09:31:03 General examination of patient 578327295 Z00.00 [id number] Health Maintenanc e FemaleA) Patient was counseled on healthy diet, exercise and nutrition due to BMI of 23.7 B) ScreeningL ast Mammogram: start at age 50 stop at 74Date: Result: BIRADS ???Next: not yet of age Last Pap smear: start at age 21 to age 65Date: Results : ???Next: has an appoitment Last Colonoscop y: start at age 45-75Date: Result: Next: not yet of age Last DEXA scan:Date: due at 65Result: ??? C) Vaccines:I nfluenza: declinedTd AP: 11/30/2023Zo ster: due at 05UYA30: due at 69XLMV56: due at 35TKB49:PC V15:COVID: 09/10/2020, 10/03/2020 D) Routine blood work completedE ) Updated patient's history RTC in one year for annual exam or sooner if any acute complaints Severe luzma or depression, single episode 3734585050 05 F32.2 - improved- PHQ-9 of 2- pt was switched to duloxetine ER 20mg- pt was on sertraline 50mg QD and bupropion XL to 300mg QD- pt now following with psychiatry - pt advised to contact therapist again as it would be beneficial Anxiety 86501180 F41.9 - RC-7 score of 9- c/w duloxetine ER 20mg QD- pt is also taking lorazepam 0.5mg BID as needed- pt now following with psychiatry Allergic rhinitis 739105 04 J30.9 - currently getting allergy shots with ENT at [facility] (Dr. Miller)- allergiest recently retired and needs a new one, referral placed Anti-nucle ar factor detected 567190141 R76.8 - currently located in the bilateral hips, knees, shoulder and mildly in the back- ordered repeat rheumatolo gical study- will also check for lymp and parvo- last seen by samina on 07/2022: RAMSEY 1-160 speckled pattern, diagnosed with fibromyalg ia Epigastric pain 43959493 R10.13 64948 848628 - improved- h pylori testing was negative- normal cmp and pancreatic enzymes- normal inflammato ry markers- c/w omeprazole 40mg QD- an ultrasound of the abdomen was ordered -> due to improvemen t of symptoms pt has cancelled this Allergy to food 32237502 1 Z91.018 021167 - pt has an epipen 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 6967457746 - was diagnosed by [facility]> they started patient on naltrexone , dosage unknown- pt referred to rheumatolo gy for formal diagnosis 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 37885 - requested by patient Niacin deficiency 120374 001 E52 45217 - requested by patient 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 40494 - requested by patient Magnesium deficiency 238 018727 E61.2 81517 - requested by patient 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 3292252072 - requested by patient Viral scre ening status 956177258 Z11.59 [id number] Health Concerns Section Related Observation LastModified by Organization Detai ls LastModified Time None Recorded Concern Status LastModified by Organization Details LastModified Time None Recorded Advance Directives Directive None Recorded Payers Insurance Date Sequence Insurance Name Policy Number Policy Trveiño Covered Member ID Treviño Member ID Guarantor Name 09/25/2017 1 [facility] ([facility] [id number] Refugio Serna [id number] Puma Almanzar 02/14/2019 1 [facility] [facility] ([facility]) [id number] Puma Serna [id number] Puma Almanzar 02/12/[address] [place] [address] ([facility]) [id number] Refugio Almanzar [id number] Puma Almanzar 01/06/2017 1 [place] ([facility] [id number] Refugio Serna [id number] Puma Almanzar Notes Date Note Type Note Provider Name and Address Organization Details Recorded Time 3 text/html Anxiety/DepressionReporte d by PatientHPIFor context, patient reportsmajor life stressorsandfamily problems. For associated symptoms, patient reportsemotional labilityandfeeling guiltybut reportsdenies homicidal ideations,no significant weight gain,no significant weight loss,no visual/auditory hallucinations,no delusions,no shortness of breath,no anxiety,no panic,no isolation,sleeping well,appetite good,energy good,no apathy, andmaintaining functionality. For quality, patient reportssymptoms improved. For severity, patient reportsdenies suicidal ideations,able to maintain relationships, anddoes not interfere with activities of daily living. For duration, patient reportsstablizing. For modifying factors, patient reportsmedications as directed.ROS as noted in the HPI Puma Almanzar is a 32 year old F who presented to the clinic for follow-up on anxiety and depression. Pt has not seen a counsellor for several months due to scheduling conflicts. On last visit, 12/23, pt was started on wellbutrin to help with her mood. Pt is also on sertraline. Medication was not increased due to having sexual side effects of decreased libido and trouble with orgasm. She has no suicidal thoughts, no plan, therapist aware of previous feeling and is continuing working with her. Pt mentions she has been feeling better since the start of wellbutrin. Pt however continues to feel fatigued and have a short temper. Brain fog is present better , still has some trouble with losing train of thought , hard to focus; feels like she has ADD, therapist agrees. Will need to have evaluation for ADD before treating by this office, pt aware and working on seeing someone. In high school, pt was having a hard time keeping her grades up. SHWETA ANDERSON MD [address], [address], [facility] 02/06/2023 21:14:04 3 text/html Anxiety/DepressionReporte d by PatientHPIFor context, patient reportsmajor life stressorsandfamily problems. For associated symptoms, patient reportsemotional labilityandfeeling guiltybut reportsdenies homicidal ideations,no significant weight gain,no significant weight loss,no visual/auditory hallucinations,no delusions,no shortness of breath,no anxiety,no panic,no isolation,sleeping well,appetite good,energy good,no apathy, andmaintaining functionality. For quality, patient reportssymptoms improved. For severity, patient reportsdenies suicidal ideations,able to maintain relationships, anddoes not interfere with activities of daily living. For duration, patient reportsstablizing. For modifying factors, patient reportsmedications as directed. Puma Almanzar is a 32 year old F who was seen on for follow-up on anxiety and depression. Pt was last seen on 02/06 and had her bupropion increased to 300mg. Pt is also on sertraline. Medication was not increased due to having sexual side effects of decreased libido and trouble with orgasm. Pt has not seen a counsellor for several months due to scheduling conflicts. Pt mentions she has been feeling better since the start of wellbutrin. Pt mentions that her fatigue and temper has improved on the higher dosage. Pt brain fog has also improved. SHWETA ANDERSON MD [address], [address], [facility] 03/13/2023 16:44:04 4 text/html Musculoskeletal PainReported by PatientHPIFor quality, patient reportsdull. For severity, patient reportsworsening. For location, patient reportspain is not radiating,bilateral shoulder,bilateral wrist,bilateral hand,bilateral hip, andbilateral knee. For timing, patient reportsconstantandsudden. For alleviating factors, patient reportsrelieved by changing position. For aggravating factors, patient reportsmovement/positioni ng. For adl (activities of daily living), patient reportsimprove with medication. For duration, (hands from , the rest of body 5-6 weeks).ROS as noted in the HPI Puma Almanzar is a 33 year old F who presented to the clinic complaining of whole body joint pain. Worse in the shoulders, hips and hands. Pt has reduced range of motion. Feeling it hard to care for her kids. Hx of lyme disease in the past. Pt has always had joint pain however worsened after . Taking tylenol as needed. Bilateral Hands: pt does wear nocturnal night splints. Felling numbness in the tips of her fingers. Started during Pt mentions this has never happened before however unsure of this as patient did see rheumatology in 07/2022 for positive RAMSEY. Was diagnosed to have fibromyalgia. SHWETA ANDERSON MD [address], [address], [facility] [place] 05/02/2024 14:27:48 5 text/html Abdominal PainReported by PatientAbdominal PainFor quality, patient reportspain,bloating, andstabbing. For associated symptoms, patient reportsnauseabut reportsno fever,no chills,no blood in the urine,no heartburn, andno shortness of breath(no change in bowel movements or stoolno change in appetite). For location, patient reportsradiatingandepigas tric(radiates to middle back). For severity, patient reportssevereandpain level 02/02. For duration, patient reportsintermittentandsta rted:(started on wednesday 01/10). For onset/timing, patient reportssudden(severity has stayed consistent since starting). For modifying factors, patient reportsnothing gives relief,movement, andbelching(coffee might make it worsesitting makes it worse, movement makes it better). For other, patient reportsdenies possible ,sexually active, andlmp01/02( had vasectomy). For context, (no pertinent health or travel history noted).ROS as noted in the HPI Puma is a 34 year old female presenting today with 6 days of intense abdominal pain that radiates to the back.Patient c/o of intense epigastric pain, radiating into mid-back, for the past 5 days (with the exception of today). This is intermittent, but can last up to an hour at a time. Associated symptoms include bloating, burping, and nausea. Patient denies changes in bowel habits. She is able to pass gas and burp. No constipation or diarrhea. No change in diet. Patient reports a mix of nutrients in diet/full diet. Martín Nagy MD [address] [facility] [address], [place], [address], [facility] [place] 01/15/2025 15:51:07 5 text/html Generic HPI TemplateReported by Patient Puma Almanzar is a 34 year old F who presents to the clinic for her annual exam. Patient denies any emergency room visits or hospitalizations during this time. Complaints: none Is not using ASA.OTC/Herbal supplements use: MMV, probiotic, lysine (every other day), iodine (every other day), adrenal vitamin and magnesium citrate, natural supplement to help with EBV Gynecologic HistoryPatient's last menstrual period was 01/02/25Menstrual cycle lasts 4 days, without spotting/clothsMenstrual cycle: monthlySexually active: yesContraception:+ abnormal paps, it was several years agoDenies cysts, fibroids Obstetric HistoryGravida: 3Para: 3AB: 0Livin (vaginal)Complications: none Drug use: once a month, ediblesEtoh use: at social eventstobacco use: nonespf/derm: uses Dental: every 6 monthsEye: does not seeDiet: regularActivity: none SHWETA ANDERSON MD [address] [address], [place], [id number], [facility] [place] 01/30/2025 09:39:25 OBGyn Episode No OBEpisode recorded.
== END 2025-05-12 10:54 | disposition home or self-care (01) ==
LOC: HO.HMGAL 10:52
PROVIDERS: PCP Student in an Organized Health Care Education/Training Program; Visit Provider Registered Nurse Emergency
DX: J30.89 Other allergic rhinitis (principal)
CPT/HCPCS: 95117; 95165